=== PATIENT | female | born 1990 | race African-American/Black ===

== ENCOUNTER 2020-01-10 10:13 | Emergency (ER) | payer OTHER, BC, SELFPAY ==
[2020-01-10 10:22] VITALS: BP 120/65; PULSE 88; RESP 16; TEMP 36.8; O2SAT 100
--- NOTE | 2020-01-10 10:39 | ED.DIZZY ---
HPI - Dizziness General Chief Complaint: Dizziness Stated Complaint: 4 months preg - Fall Time Seen by Provider: 01/10/20 10:35 Source: patient Mode of arrival: ambulatory Limitations: no limitations History of Present Illness HPI Narrative: Pt is a 29 y/o female who is 17 weeks , that presents to the ED with c/o feeling dizzy after tripping and falling. She notes that she was in a hurry, turned quickly, and landed on her rt side. About 2 minutes after her fall she started getting dizzy. Pt is still lightheaded in the ED bed. She states that she slightly hit the rt side of her ABD. Pt reports pain to her rt thigh, rt ankle, and lt index finger. She notes that her neck felt stiff after the fall. Pt denies vaginal bleeding, vaginal discharge, or N/V. MD elicited complaint: dizziness Timing: sudden onset (2 minutes after falling) Description: lightheadedness Context: other (fall) Associated symptoms: denies other symptoms Related Data Home Medications Medication Instructions Recorded Confirmed budesonide-formoterol HFA 160 See Rx Instructions .ROUTE .COMPLEX 09/08/19 mcg-4.5 mcg/actuation aerosol inhaler cholecalciferol (vitamin D3) 125 5,000 unit PO DAILY 09/08/19 mcg (5,000 unit) tablet omeprazole 20 mg capsule,delayed See Rx Instructions .ROUTE .COMPLEX 09/08/19 release vits 75-iron 28 mg-folic pkg PO 11/14/19 acid 800 mcg-omega-3 oral combo pack Allergies Allergy/AdvReac Type Severity Reaction Status Date / Time metoclopramide Allergy Unknown HIVES Verified 01/10/20 10:47 Review of Systems Review of Systems: All systems reviewed & are unremarkable except as noted in HPI and below Gastrointestinal: Gastrointestinal: Denies nausea and Denies vomiting Genitourinary: Genitourinary: Denies vaginal discharge and Denies other (vaginal bleeding) Musculoskeletal: Musculoskeletal: Reports stiffness (neck) and Reports other (rt thigh pain, rt ankel pain, lt index finger pain) Neurologic: Reports dizziness PMFSH Past Medical History Medical History Anemia Asthma History of IBS Migraines Supervision of other high risk pregnancies, second trimester Surgical History Surgical History History of ankle surgery History of repair of ACL Social History Social History Smoking status: Former smoker Smoking end date: 11/01/03 Alcohol intake: current Exam Narrative: Exam Narrative: General appearance: Well-developed, well-nourished, morbidly obese Skin: Normal color Head: Normocephalic, nontraumatic Eyes: Clear conjunctiva ENT: Oropharynx normal, ears normal, nose normal Neck: Supple, nontender Chest and respiratory: Airway patent, no respiratory distress, no accessory muscle use Heart: Regular rate/rhythm Abdomen: Soft, nontender, no organomegaly, quiet bowel sounds Vascular: Normal peripheral pulses, normal capillary refill. Musculoskeletal: Normal range of motion, nontender back, mild tenderness right thigh laterally, no bruises or swelling Neurologic: Alert and oriented ?3, RN FORENSIC is normal as tested, no gross motor deficit Course Course Emergency Course: Stable Vital Signs Vital signs: Vital Signs Temperature 36.8 C 01/10/20 10:22 Pulse Rate 88 01/10/20 10:22 Respiratory Rate 16 01/10/20 10:22 Blood Pressure 120/65 01/10/20 10:22 Pulse Oximetry 100 01/10/20 10:22 Temperature 36.8 C 01/10/20 10:22 Pulse Rate 88 01/10/20 10:22 Respiratory Rate 16 01/10/20 10:22 Blood Pressure 120/65 01/10/20 10:22 Pulse Oxim
--- NOTE | 2020-01-10 10:58 | PC.NURSE ---
Pt became dizzy, lightehaded and nauseated while rolling to change bed. Large amount blood passing vaginally. ERP aware.
--- NOTE | 2020-01-10 11:34 | PC.NURSE ---
OB nurse here to monitor baby
[2020-01-10 12:37] VITALS: BP 108/59; PULSE 72; RESP 18; O2SAT 100
== END 2020-01-10 12:38 | disposition home or self-care (01) ==
PROVIDERS: Emergency Provider Emergency Medicine; PCP Emergency Medicine
DX: O9A.212 Injury, poisoning and certain other consequences of external causes complicating pregnancy, second trimester (principal); S39.91XA Unspecified injury of abdomen, initial encounter; Z3A.17 17 weeks gestation of pregnancy; W19.XXXA Unspecified fall, initial encounter
CPT/HCPCS: 99282

== ENCOUNTER 2020-01-24 13:27 | Outpatient (CLI) | payer BC, SELFPAY ==
--- NOTE | ~2020-01-24 | US_ITS ---
EXAMINATION: US OB /maternal detail DATE: 01/24/2020 15:09 INDICATION: Encounter for other unspecified screening, second trimester TECHNIQUE: Real-time ultrasound of the pelvis was performed. COMPARISON: None. FINDINGS: There is a single living fetus in breech presentation. The placenta is posterior and 7 cm from the in ternal cervical os. heart rate is 134 beats per minute (bpm). cardiac activity and movement are noted. The amniotic fluid index is normal. The following anatomy was identified as normal: 4 chamber heart 3 vessel cord cord insertion kidneys urinary bladder stomach spine diaphragm ventricles cisterna magna cerebellum The following biometric data were obtained: Biparietal diameter (BPD): 4.4 cm; head circumference (HC): 16.9 cm; abdominal circumference (AC): 13 .9 cm; femur length (FL): 3.3 cm. These measurements are concordant. Estimated weight is 216 g +/- 47 g, which correlates with the 52nd percentile when 06/14/2020 is used as estimated date of delivery. As single measurements, these parameters are each equal to the following estimated gestational ages w ith ranges of +/- 2 standard deviations: BPD: 19 weeks 3 days +/- 1 weeks 5 days. HC: 19 weeks 4 days +/- 1 weeks 3 days. AC: 19 weeks 3 days +/- 2 weeks 0 days. FL: 20 weeks 3 days +/- 1 weeks 6 days. estimated gestational age based solely on measurements from this exam is 19 weeks 5 days +/- 1 weeks 3 days. IMPRESSION: 1. Single living fetus in breech presentation. 2. Estimated weight is 216 g +/- 47 g, which correlates with the 52nd percentile when 06/14/2020 is used as estimated date of delivery. Reviewed, dictated and finalized at location B. IMPRESSION: 1. Single living fetus in breech presentation. 2. Estimated weight is 216 g +/- 47 g, which correlates with the 52nd per centile when 06/14/2020 is used as estimated date of delivery.
== END 2020-01-24 13:28 | disposition home or self-care (01) ==
PROVIDERS: PCP Emergency Medicine; Visit Provider Obstetrics & Gynecology
DX: Z36.89 Encounter for other specified antenatal screening (principal); Z3A.19 19 weeks gestation of pregnancy
CPT/HCPCS: 76805

== ENCOUNTER 2020-04-02 23:29 | Observation (INO) | payer BC, SELFPAY ==
--- NOTE | ~2020-04-02 | XR_ITS ---
EXAMINATION: XR chest 2V EXAM DATE: 04/03/2020 00:04 INDICATION: Shortness of breath. TECHNIQUE: Frontal and lateral projections of the chest obtained and reviewed. There is no prior gaston dy for comparison. FINDINGS: The lungs are clear. There are no pleural effusions. The cardiomediastinal silhouette is within normal limits. There is no pneumothorax suspected. The bones and soft tissues are unremarkab le. IMPRESSION: Normal chest x-ray exam. Reviewed, dictated and finalized at location G. IMPRESSION: Normal chest x-ray exam.
[2020-04-02 23:35] VITALS: BP 128/81; PULSE 91; RESP 20; TEMP 36.3; O2SAT 100
[2020-04-03] VITALS (8 sets, daily range): BP systolic 108–115; BP diastolic 69–78; PULSE 70–88; RESP 14–16; TEMP 36.3–37.2; O2SAT 98–100; BMI 39.2
--- NOTE | 2020-04-03 00:02 | PC.NURSE ---
Upon arrival to ED, patient denies any SOB. Patient states she just had a brief episode of SOB.
[2020-04-03 00:25] LABS: Basophils Percent Auto 0.2 % (0.2-1.2); Eosinophils Absolute Auto 0.1 K/mm3 (0-0.3); Eosinophils Percent Auto 0.8 % (0-4.4); Hematocrit 32.7 % (37.0-47.0); Hemoglobin 10.4 g/dL (12.0-15.0); Immature Granulocyte Absolute 0.16 K/mm3 (0.00-0.031); Immature Granulocyte Percent A 1.2 % (0-0.5); Lymphocytes Absolute Auto 1.81 K/mm3 (0.9-3.2); Mean Corpuscular HGB Conc 31.8 g/dl (32-36); Mean Corpuscular Hemoglobin 27.4 pg (26-34); Mean Corpuscular Volume 86.3 fl (80-100); Mean Platelet Volume 10.2 fl (7.4-10.4); Neutrophils Absolute Auto 10.8 K/mm3 (1.3-6.7); Neutrophils Percent Auto 77.8 % (45.5-73.1); Platelet Count Result 308 k/mm3 (150-375); Red Blood Count 3.79 M/mm3 (4.2-5.4); Red Cell Distribution Width 13.9 % (11.5-14.5); White Blood Count 13.9 K/mm3 (4.5-10.0)
[2020-04-03 00:28] LABS: Blood Urea Nitrogen 7 mg/dL (7-17); Calcium 8.8 mg/dL (8.4-10.2); Carbon Dioxide 22 mmol/L (22-30); Chloride 105 mmol/L (98-107); Estimated Glomerular Filt Rate > 60; Glucose 93 mg/dL (65-105); Sodium 133 mmol/L (137-145)
--- NOTE | 2020-04-03 00:28 | PC.NURSE ---
PT ARRIVED TO ED AFTER GOING TO OB- OB CALLED TO LET ED KNOW THEY WERE BRINGING PT TO ED TO BE CHECKED FOR SOB. PT ARRIVED TO OB FOR SOB AND ABD PAIN. OB SENT OVER TO ED TO BE CHECKED FOR SOB. ED WAS UNDER ASSUMPTION PT/BABY WAS CHECKED BEFORE SENDING TO ED. PT STATES WILL SOMEONE BE COMING FROM OB TO CHECK BABY HEARTRATE . THIS TECH CALLED OB TO CONFIRM PT WISHES AND WAS INFORMED PT WAS NOT CHECKED AT OB THEY SENT STRAIGHT TO ED FOR SOB AND IF ED WOULD LIKE CONSULT FOR PT AND BABY TO CALL OB FOR CONSULTATION.
--- NOTE | 2020-04-03 02:26 | ED.PREGNANCY ---
HPI - General Chief complaint: Abdominal Pain Stated complaint: sob Time Seen by Provider: 04/03/20 02:07 Source: patient Mode of arrival: ambulatory Limitations: no limitations History of Present Illness HPI Narrative: This patient is a 30 year old female G1PO approximately 29 weeks GA who states she went to Labor and Delivery to be evaluated for abdominal pain. She was sent to ER from Labor and delivery because she told them she had brief episode of shortness of breath that resolved. She is concerned about her abdominal pain. She denies shortness of breath, chest pain, cough or fever. Around 8 pm tonight she developed mid to lower abdominal pain. This pain has been constant. She describes this pain as burning and it is worse with movement. She has no associated urinary symptoms , vaginal discharge or vaginal bleeding. OBGYN is Dr. Moises HERNANDEZ Complaint: abdominal pain Related Data Home Medications Medication Instructions Recorded Confirmed cholecalciferol (vitamin D3) 125 5,000 unit PO DAILY 09/08/19 mcg (5,000 unit) tablet vits 75-iron 28 mg-folic pkg PO 11/14/19 acid 800 mcg-omega-3 oral combo pack Caltrate 600 plus D 1 tablet PO DAILY 03/28/20 03/28/20 Ferralet 90 Dual-Iron Delivery 1 tablet PO ONCE 03/28/20 03/28/20 Allergies Allergy/AdvReac Type Severity Reaction Status Date / Time metoclopramide Allergy Unknown HIVES Verified 04/03/20 02:10 Review of Systems Review of Systems: All systems reviewed & are unremarkable except as noted in HPI and below Constitutional: Constitutional: Denies chills, Denies fever(s) and Denies weakness ENT: Denies dizziness Cardiovascular: Cardiovascular: Denies chest pain, Denies rapid heart rate and Denies radiating jaw, neck or arm pain Respiratory: Respiratory: Denies chest congestion, Denies cough and Denies wheezing Gastrointestinal: Gastrointestinal: Reports abdominal pain PMFSH Social History Social History Smoking status: Never smoker Smoking end date: 11/01/03 Alcohol intake: current Gender identity (if verbalized by the patient): Female Spiritual care concerns: No Exam Narrative: Exam Narrative: GENERAL: Well-appearing, well-nourished, and in no acute distress. HEAD: Normocephalic, atraumatic EYES: PERRLA and EOMI, conjunctiva clear without discharge THROAT:Mucous membranes moist, Oropharynx normal without erythema, exudate, peritonsillar swelling or fluctuance NECK: Supple, without lymphadenopathy or mass RESPIRATORY: No respiratory distress, Airway patent, Respirations non-labored, Clear to auscultation without rales, rhonchi or wheeze HEART: Regular rate and rhythm. No murmur heard. Normal peripheral pulses. ABDOMEN: Soft,gravid, uterine tenderness, normal active bowel sounds. No masses. No rebound or guarding, No organomegaly. EXTREMITIES: No edema, normal strength with full range of motion. SKIN: Warm, dry, normal color without rash NEURO: Alert and oriented x3. CN 2-12 grossly intact. No focal deficits. PSYCH: Normal mood and affect. Course Reevaluation(s) Reevaluation #1: heart tones performed 130 in left abdomen. Patient has not shortness of breath here. Will send to Labor and Delivery Date: 04/03/20 Time: 03:00 Consultations Consultation #1: I Discussed case with Dr. De Leon who agrees patient can be sent to Labor and Delivery for assessment of her abdominal pain. Patient has no shortness of breath and vitals are normal Date: 04/03/20 Time: 03:00 Vital Signs Vital signs: Vital Signs Temperature 97.4 F L 04/02/20 23:35 Pulse Rate 91 04/02/20 23:35 Respiratory Rate 20 04/02/20 23:35 Blood Pressure 128/81 04/02/20 23:35 Pulse Oximetry 100 04/02/20 23:35 Temperature 98.2 F 04/03/20 03:46 Pulse Rate 84 04/03/20 04:30 Respiratory Rate 16 04/03/20 03:20 Blood Pressure 112/75 04/03/20 04:30 Pu
[2020-04-03 02:42] LABS: Add Urine Microscopic? YES; Appearance Urine Clear (Clear); Bacteria Urine Trace /hpf; Bilirubin Urine Negative (Negative); Blood Urine Negative (Negative); Color Urine Yellow (Yellow); Glucose Urine UA Negative (Negative); Ketones Urine Negative (Negative); Leukocyte Esterase Ur Negative LEU/UL (Negative); Mucus Urine Rare /lpf; Nitrate Urine Negative (Negative); Protein Urine 1+ mg/dL (Negative); RBC Urine 0-2 /hpf (0-2); Squamous Epithelial Cell Urine Occasional /hpf (Few); Urobilinogen Urine Negative mg/dL (<2.0); WBC Urine 0-3 /hpf
[2020-04-03 03:40] LABS: Alanine Aminotransferase 42 U/L (4-35); Albumin Level 3.9 g/dL (3.5-5.1); Alkaline Phosphatase 121 U/L (38-126); Aspartate Amino Transferase 34 U/L (14-36); Bilirubin,Total 0.2 mg/dL (0.2-1.3)
--- NOTE | 2020-04-03 03:45 | OBADM ---
This patient, Anai Tony, admitted to the OB room [facility] Post [facility] for observation. Patient/family oriented to hospital policies and general routines including ID bracelet, bed and alarms, visiting hours, pain management, procedures, bathroom and other care routines, personal items, smoking policy, room service/diet, and visiting hours. Patient/Family are encouraged to report perceived risks to care and to ask questions if they do not understand what they are told or what they should do.
[2020-04-03 03:48] LABS: Uric Acid 4.4 mg/dL (2.5-7.5)
[2020-04-03 04:49] LABS: Hepatitis B Surface Antigen Negative (Negative)
[2020-04-03 04:55] LABS: HAV RESULT Negative (Negative); Hepatitis B Core IgM Result Negative (Negative)
[2020-04-03 05:07] LABS: Hepatitis C Virus Antibody Negative (Negative)
--- NOTE | 2020-04-05 13:31 | PM.OBTRLD ---
OB - Triage/Final Diagnosis Evaluation Laboratory results: Laboratory Tests 04/03/20 04/03/20 04/03/20 00:10 00:10 00:10 WBC 13.9 H RBC 3.79 L Hgb 10.4 L Hct 32.7 L MCV 86.3 MCH 27.4 MCHC 31.8 L RDW 13.9 Plt Count 308 MPV 10.2 Immature Gran % (Auto) 1.2 H Neut % (Auto) 77.8 H Lymph % (Auto) 13.0 L Bath % (Auto) 7.0 Eos % (Auto) 0.8 Baso % (Auto) 0.2 Lymph # (Auto) 1.81 Bath # (Auto) 1.0 H Eos # (Auto) 0.1 Baso # (Auto) 0.0 Abs Immat Gran (auto) 0.16 H Absolute Neuts (auto) 10.8 H Absolute Nucleated RBC 0.0 Nucleated RBC % 0.0 Sodium 133 L Potassium 4.0 Chloride 105 Carbon Dioxide 22 BUN 7 Creatinine 0.50 L Estim Creat Clear Calc Not Reportable Estimated GFR > 60 Glucose 93 Uric Acid 4.4 Calcium 8.8 Total Bilirubin Direct Bilirubin AST ALT Alkaline Phosphatase Total Protein Albumin Urine Color Urine Appearance Urine pH Ur Specific [place] Urine Protein Urine Glucose (UA) Urine Ketones Ur Blood (Man) Urine Nitrate Urine Bilirubin Urine Urobilinogen Leukocyte Esterase Rfl Urine RBC Urine WBC Ur Squamous Epith Cells Urine Bacteria Urine Mucus Hepatitis A IgM Ab Hep Bs Antigen Hep B Core IgM Ab Hepatitis C Ab Screen 04/03/20 04/03/20 04/03/20 00:10 02:28 03:21 WBC RBC Hgb Hct MCV MCH MCHC RDW Plt Count MPV Immature Gran % (Auto) Neut % (Auto) Lymph % (Auto) Bath % (Auto) Eos % (Auto) Baso % (Auto) Lymph # (Auto) Bath # (Auto) Eos # (Auto) Baso # (Auto) Abs Immat Gran (auto) Absolute Neuts (auto) Absolute Nucleated RBC Nucleated RBC % Sodium Potassium Chloride Carbon Dioxide BUN Creatinine Estim Creat Clear Calc Estimated GFR Glucose Uric Acid Calcium Total Bilirubin 0.2 Direct Bilirubin 0.0 AST 34 ALT 42 H Alkaline Phosphatase 121 Total Protein 8.0 Albumin 3.9 Urine Color Yellow Urine Appearance Clear Urine pH 6.0 Ur Specific [place] 1.030 Urine Protein 1+ H Urine Glucose (UA) Negative Urine Ketones Negative Ur Blood (Man) Negative Urine Nitrate Negative Urine Bilirubin Negative Urine Urobilinogen Negative Leukocyte Esterase Rfl Negative Urine RBC 0-2 Urine WBC 0-3 Ur Squamous Epith Cells Occasional Urine Bacteria Trace Urine Mucus Rare Hepatitis A IgM Ab Negative Hep Bs Antigen Negative Hep B Core IgM Ab Negative Hepatitis C Ab Screen Negative Final Diagnosis (1) Abdominal pain affecting : Code(s): O26.899 - Other specified related conditions, unspecified trimester; R10.9 - Unspecified abdominal pain Status: Acute
== END 2020-04-03 05:20 | disposition home or self-care (01) ==
LOC: ANHED 04-03 02:07 → ANHOBPP 04-03 03:38 → ANHED 04-03 03:41 → ANHOBPP 04-03 03:41
PROVIDERS: Admitting Provider Obstetrics & Gynecology; Emergency Provider General Practice; PCP Emergency Medicine; Visit Provider Obstetrics & Gynecology
DX: O26.893 Other specified pregnancy related conditions, third trimester (principal); R10.9 Unspecified abdominal pain; Z3A.29 29 weeks gestation of pregnancy
CPT/HCPCS: 36415; 59025; 71046; 80048; 80074; 80076; 81001; 84550; 85025; 96374; 99285; G0378; J0131

== ENCOUNTER 2020-05-14 12:17 | Outpatient (CLI) | payer BC, SELFPAY ==
[2020-05-14 12:32] LABS: Basophils Percent Auto 0.3 % (0.2-1.2); Eosinophils Absolute Auto 0.1 K/mm3 (0-0.3); Eosinophils Percent Auto 0.7 % (0-4.4); Hematocrit 35.9 % (37.0-47.0); Hemoglobin 11.7 g/dL (12.0-15.0); Lymphocytes Absolute Auto 1.61 K/mm3 (0.9-3.2); Lymphocytes Percent Auto 15.8 % (18.3-44.2); Mean Corpuscular HGB Conc 32.6 g/dl (32-36); Mean Corpuscular Hemoglobin 28.6 pg (26-34); Mean Corpuscular Volume 87.8 fl (80-100); Mean Platelet Volume 9.7 fl (7.4-10.4); Monocytes Absolute Auto 0.9 K/mm3 (0.1-0.6); Monocytes Percent Auto 8.9 % (2.6-8.5); Neutrophils Absolute Auto 7.5 K/mm3 (1.3-6.7); Neutrophils Percent Auto 73.3 % (45.5-73.1); Platelet Count Result 280 k/mm3 (150-375); Red Blood Count 4.09 M/mm3 (4.2-5.4); Red Cell Distribution Width 14.4 % (11.5-14.5); White Blood Count 10.2 K/mm3 (4.5-10.0)
[2020-05-14 13:25] LABS: HIV 1/2 Ab P24 Ag Result Negative (Negative)
[2020-05-15 07:41] LABS: Rapid Plasma Reagin Non-Reactive (NonReactive)
== END 2020-05-14 12:18 | disposition home or self-care (01) ==
PROVIDERS: PCP Emergency Medicine; Visit Provider Obstetrics & Gynecology
DX: O09.893 Supervision of other high risk pregnancies, third trimester (principal); Z3A.00 Weeks of gestation of pregnancy not specified
CPT/HCPCS: 36415; 85025; 86592; 86703; G0432

== ENCOUNTER 2020-05-20 11:55 | Outpatient (RCR) | payer BC, SELFPAY ==
[2020-04-15 10:43] VITALS: BP 112/68; PULSE 84
[2020-04-22 11:20] VITALS: BP 118/74; PULSE 96
[2020-04-29 15:21] VITALS: BP 126/72; PULSE 92
[2020-05-13 12:16] VITALS: BP 108/69; PULSE 95
[2020-05-14 12:03] VITALS: BP 113/76; PULSE 89
[2020-05-15 09:46] VITALS: BP 108/65; PULSE 114
--- NOTE | ~2020-05-20 | US_ITS ---
EXAMINATION: US OB limited w BPP DATE: 05/14/2020 11:11 CDT INDICATION: Diabetes. TECHNIQUE: Real-time transabdominal obstetric ultrasound. FINDINGS: No prior studies for comparison. There is a single living fetus in vertex presentation. The placenta is posterior without placenta pr evia. KURT is below normal limits measuring 5.75 (normal range for gestational age is 7.9-24.9 cm). cardiac activity and movement is noted with a heart rate of 134 beats per minute. Biophysical profile: breathin of 2 movement: 2 of 2 tone: 2 of 2 Amniotic flud pocket: 2 of 2 Total score: 8 of 8 IMPRESSION: 1. Single living intrauterine in vertex presentation. 2: Total biophysical profile score of 8/8. 3: Oligohydramnios. Reviewed, dictated and finalized at location B.
--- NOTE | ~2020-05-20 | US_ITS ---
EXAMINATION: 1. US OB limited w BPP 2. US umbilical doppler DATE: 05/20/2020 12:59 INDICATION: Small for gestational age. Chronic hypertension. Oligohydramnios. Third trimester. TECHNIQUE: Real-time pelvic ultrasound was performed. COMPARISON: Ultrasound 05/15/2020 FINDINGS: There is a single living fetus in vertex presentation. The placenta is posterior. heart rate i s 125 beats per minute (bpm). The amniotic fluid index is 11.0 cm, which is normal. Biophysical profile performed by the technologist: breathing (30 sec sustained breathing in 30 minutes): 2 out of 2 movement (3 gross body movements in 30 minutes): 2 out of 2 tone (one episode of yuaqzuo-bbwsmrnss-mdptymh limb movement): 2 out of 2 Amniotic fluid pocket (2 cm): 2 out of 2 Total score: 8 out of 8 Umbilical artery pulsed Doppler demonstrates a peak systolic to end-diastolic velocity ratio (S/D rat io) of 2.8 (5th percentile = 1.98, 95th percentile = 3.29). IMPRESSION: 1. Single living fetus in vertex presentation. 2. Biophysical profile 8 out of 8. 3. Normal umbilical artery Doppler. Reviewed, dictated and finalized at location A. IMPRESSION: 1. Single living fetus in vertex presentation. 2. Biophysical profile 8 out of 8. 3. Normal umbilical artery Doppler.
--- NOTE | ~2020-05-20 | US_ITS ---
EXAMINATION: US OB BPP wo non-stress DATE: 05/06/2020 11:48 INDICATION: Chronic hypertension. Third trimester. TECHNIQUE: Real-time pelvic ultrasound was performed. COMPARISON: ultrasound 01/24/20 FINDINGS: There is a single living fetus in vertex presentation. The placenta is left posterior. heart r ate is 134 beats per minute (bpm). The amniotic fluid index is 11.0 cm, which is normal. Biophysical profile performed by the technologist: breathing (30 sec sustained breathing in 30 minutes): 2 out of 2 movement (3 gross body movements in 30 minutes): 2 out of 2 tone (one episode of zgdejby-wunvvdowz-xbhgheh limb movement): 2 out of 2 Amniotic fluid pocket (2 cm): 2 out of 2 Total score: 8 out of 8 IMPRESSION: 1. Single living fetus in vertex presentation. 2. Biophysical profile 8 out of 8. Reviewed, dictated and finalized at location A.
--- NOTE | ~2020-05-20 | US_ITS ---
EXAMINATION: US OB limited, US umbilical doppler DATE: 05/15/2020 09:21 INDICATION: Hypertension during third trimester . Oligohydramnios. Assess amniotic fluid ind ex. TECHNIQUE: Real-time ultrasound of the pelvis was performed. The interpreting radiologist was not pre sent for the study. COMPARISON: 05/14/2020 FINDINGS: There is a single living fetus in vertex presentation. The placenta is posterior. heart rate i s 133 beats per minute (bpm). The amniotic fluid index is 11.1 cm, which is normal (5th%-95%: 7.7-4.9 cm at 36 weeks estimated gestational age). The umbilical artery demonstrates a peak systolic and bc stolic velocity ratio of 2.9at the fetus, 3.1 in the mid cord and 2.2 near the placenta (5th%-95%: 1. 98-3.29 at 36 weeks). IMPRESSION: 1. Single living fetus in vertex presentation with heart rate of 133 bpm. 2. Normal amniotic fluid index of 11.1 cm. 3. Normal umbilical arterial systolic to diastolic ratios of 2.2-3.1. Reviewed, dictated and finalized at location A. IMPRESSION: 1. Single living fetus in vertex presentation with heart rate of 133 bpm . 2. Normal amniotic fluid index of 11.1 cm. 3. Normal umbilical arterial systolic to diastolic ratios of 2.2-3.1.
[2020-05-20 13:00] VITALS: BP 123/73; PULSE 78
== END 2020-05-27 07:32 | disposition home or self-care (01) ==
LOC: ANHOBOP 11:55
PROVIDERS: PCP Emergency Medicine; Visit Provider Obstetrics & Gynecology
DX: O36.5930 Maternal care for other known or suspected poor fetal growth, third trimester, not applicable or unspecified (principal); O16.3 Unspecified maternal hypertension, third trimester; Z3A.31 31 weeks gestation of pregnancy; Z3A.32 32 weeks gestation of pregnancy; Z3A.33 33 weeks gestation of pregnancy; Z3A.34 34 weeks gestation of pregnancy; Z3A.35 35 weeks gestation of pregnancy; Z3A.36 36 weeks gestation of pregnancy
CPT/HCPCS: 59025; 76815; 76819; 76820

== ENCOUNTER 2020-05-22 18:54 | Inpatient (IN) | payer BC, SELFPAY ==
[2020-05-22] VITALS (13 sets, daily range): BP systolic 109–122; BP diastolic 66–87; PULSE 77–103; TEMP 36.8; BMI 42.5
--- NOTE | 2020-05-22 19:55 | LDADM ---
This patient, Anai Tony, was admitted to Labor/Delivery/Recovery 103 on 05/22/20 at 18:54. Plans for labor, pain management and were discussed with patient. Patient/family oriented to hospital policies and general routines including ID bracelet, bed and alarms, visiting hours, pain management, procedures, bathroom and other care routines, personal items, smoking policy, room service/diet and guest tray routines, security routines, and visiting hours. Patient/Family are encouraged to report perceived risks to care and to ask questions if they do not understand what they are told or what they should do. See OBIX for further documentation.
[2020-05-22 20:45] LABS: Basophils Percent Auto 0.2 % (0.2-1.2); Eosinophils Absolute Auto 0.1 K/mm3 (0-0.3); Eosinophils Percent Auto 0.7 % (0-4.4); Hematocrit 32.9 % (37.0-47.0); Hemoglobin 10.7 g/dL (12.0-15.0); Immature Granulocyte Absolute 0.09 K/mm3 (0.00-0.031); Immature Granulocyte Percent A 0.8 % (0-0.5); Lymphocytes Absolute Auto 1.59 K/mm3 (0.9-3.2); Lymphocytes Percent Auto 14.1 % (18.3-44.2); Mean Corpuscular HGB Conc 32.5 g/dl (32-36); Mean Corpuscular Hemoglobin 28.4 pg (26-34); Mean Corpuscular Volume 87.3 fl (80-100); Mean Platelet Volume 10.2 fl (7.4-10.4); Monocytes Absolute Auto 0.9 K/mm3 (0.1-0.6); Monocytes Percent Auto 8.3 % (2.6-8.5); Neutrophils Absolute Auto 8.6 K/mm3 (1.3-6.7); Neutrophils Percent Auto 75.9 % (45.5-73.1); Platelet Count Result 272 k/mm3 (150-375); Red Blood Count 3.77 M/mm3 (4.2-5.4); Red Cell Distribution Width 13.9 % (11.5-14.5); White Blood Count 11.3 K/mm3 (4.5-10.0)
[2020-05-22] MEDS: DINOPROSTONE 10 MG VAG INSERT VAGINAL (20:45)
[2020-05-22] MEDS: LACTATED RINGERS 1,000 ML 125 ML IV CONT (20:45)
[2020-05-22] MEDS: AMPICILLIN 2 GM/NS 100 ML 2 GM/100 ML BAG IVPB (20:45)
--- NOTE | 2020-05-22 20:49 | WPDANESEPP ---
Anes - Eval Pre Procedure Procedure: labor epidural Date/Time: 05/22/20 20:49 Surgeon: Moises Preop Diagnosis: Abd pain with contractions Pre Op Diagnosis: Induction Patient Data Age: 30 Gender: F Height: 5 ft 5 in Weight: 116 kg Last Vital Signs Pulse 102 H 05/22/20 19:46 BP 114/87 05/22/20 19:46 Allergies Allergy/AdvReac Type Severity Reaction Status Date / Time metoclopramide Allergy Unknown HIVES Verified 05/20/20 13:22 Home Medications Medication Instructions Recorded Confirmed Type cholecalciferol (vitamin D3) 125 5,000 unit PO DAILY 09/08/19 05/22/20 History mcg (5,000 unit) tablet vits 75-iron 28 mg-folic pkg PO 11/14/19 History acid 800 mcg-omega-3 oral combo pack budesonide-formoterol HFA 160 See Rx Instructions .ROUTE 02/05/20 05/13/20 Rx mcg-4.5 mcg/actuation aerosol .COMPLEX #10.2 gm inhaler Caltrate 600 plus D 1 tablet PO DAILY 03/28/20 05/13/20 History albuterol sulfate 2 puff INHALATION QID PRN 05/13/20 05/22/20 History aspirin [Aspirin Childrens] 81 mg PO DAILY 05/22/20 05/22/20 History Laboratory Tests 05/22/20 05/22/20 05/22/20 19:47 19:47 19:47 WBC 11.3 K/mm3 H K/mm3 (4.5-10.0) RBC 3.77 M/mm3 L M/mm3 (4.2-5.4) Hgb 10.7 g/dL L g/dL (12.0-15.0) Hct 32.9 % L % (37.0-47.0) MCV 87.3 fl fl (80-100) MCH 28.4 pg pg (26-34) MCHC 32.5 g/dl g/dl (32-36) RDW 13.9 % % (11.5-14.5) Plt Count 272 k/mm3 k/mm3 (150-375) MPV 10.2 fl fl (7.4-10.4) Immature Gran % (Auto) 0.8 % H % (0-0.5) Neut % (Auto) 75.9 % H % (45.5-73.1) Lymph % (Auto) 14.1 % L % (18.3-44.2) [place] % (Auto) 8.3 % % (2.6-8.5) Eos % (Auto) 0.7 % % (0-4.4) Baso % (Auto) 0.2 % % (0.2-1.2) Lymph # (Auto) 1.59 K/mm3 K/mm3 (0.9-3.2) [place] # (Auto) 0.9 K/mm3 H K/mm3 (0.1-0.6) Eos # (Auto) 0.1 K/mm3 K/mm3 (0-0.3) Baso # (Auto) 0.0 K/mm3 K/mm3 (0.0-0.1) Abs Immat Gran (auto) 0.09 K/mm3 H K/mm3 (0.00-0.031) Absolute Neuts (auto) 8.6 K/mm3 H K/mm3 (1.3-6.7) Absolute Nucleated RBC 0.0 K/mm3 K/mm3 (0.0-0.012) Nucleated RBC % 0.0 % % (0.0-0.2) RPR Pending HIV 1&2 Ab/P24 Ag 4thGn Pending Patient hx anesthesia problems: none Family hx anesthesia problems: none PMFSH Past Medical History Medical History Anemia Asthma History of IBS Migraines Supervision of other high risk pregnancies, second trimester Supervision of other high risk pregnancies, third trimester Surgical History Surgical History History of ankle surgery History of repair of ACL Family History Family History Father Diabetes mellitus Cerebrovascular accident Mother Family history of multiple sclerosis Crohn's disease Grandparent Hypertension Social History Social History Smoking status: Never smoker Smoking end date: 11/01/03 Alcohol intake: current Substance use: never Gender identity (if verbalized by the patient): Female Spiritual care concerns: No Exam Day of Procedure 05/22/20 20:49 Patient weight: morbidly obese Neurological: alert and oriented
[2020-05-23] VITALS (47 sets, daily range): BP systolic 99–136; BP diastolic 47–80; PULSE 69–124; TEMP 36.2–36.9; O2SAT 99–100
[2020-05-23] LABS: HIV 1/2 Ab P24 Ag Result Negative (Negative)
--- NOTE | 2020-05-23 00:18 | PM.IMHP ---
H&P: HPI History of Present Illness Chief complaint: Induction Narrative: Anai Tony is a 30 year old female G1PO at 37 weeks by LMP 09/06/19 with an EDC 06/12 consistent with a first trimester ultrasound. PNC significant for chronic hypertension based on two elevated blood pressures prior to 20 weeks. She has not required any antihypertensive medication. PNC also significant for IUGR since second trimester. The evaluation showed + CMV, no other abnormalities seen on ultrasound. She has been getting serial ultrasound and dopplers. The EFW has went from 10% to 6 %. Her last ultrasound showed 4%- normal dopplers. She was recommended for induction for worsening growth restriction at term. She also has a history of being born with a club foot, no abnormalities were seen on Level 2. She has a history of mild asthma- has not needed any steroids. She has an inhaler as needed. Discussed risk benefits of induction versus continuing expectant management and she agrees with induction. GBS neg. labs reviewed. Review of Systems Review of Systems: All systems reviewed & are unremarkable except as noted in HPI and below Constitutional: Constitutional: Reports no additional constitutional complaints and Denies headache(s) Eyes: Eyes: Denies spots in vision ENT: Reports system reviewed and no additional complaints, except as documented and Denies headache(s) Cardiovascular: Cardiovascular: Denies chest pain and Denies dyspnea Respiratory: Respiratory: Denies dyspnea Gastrointestinal: Gastrointestinal: Reports no additional gastrointestinal complaints Genitourinary: Genitourinary: Reports amenorrhea Musculoskeletal: Musculoskeletal: Reports no additional musculoskeletal complaints Integumentary/Breasts: Skin/Breast: Denies breast mass and Denies rash Neurologic: Denies headache(s) Psychiatric: Psychiatric: Reports no additional psychiatric complaints [facility] Past Medical History Medical History Anemia Asthma History of IBS Migraines Supervision of other high risk pregnancies, second trimester Supervision of other high risk pregnancies, third trimester Surgical History Surgical History History of ankle surgery History of repair of ACL Family History Family History Father Diabetes mellitus Cerebrovascular accident Mother Family history of multiple sclerosis Crohn's disease Grandparent Hypertension Social History Social History Smoking status: Never smoker Smoking end date: 11/01/03 Alcohol intake: current Substance use: never Gender identity (if verbalized by the patient): Female Spiritual care concerns: No Meds Home Medications and Allergies Home Medications Medication Instructions Recorded Confirmed Type cholecalciferol (vitamin D3) 125 5,000 unit PO DAILY 09/08/19 05/22/20 History mcg (5,000 unit) tablet vits 75-iron 28 mg-folic pkg PO 11/14/19 History acid 800 mcg-omega-3 oral combo pack budesonide-formoterol HFA 160 See Rx Instructions .ROUTE 02/05/20 05/13/20 Rx mcg-4.5 mcg/actuation aerosol .COMPLEX #10.2 gm inhaler Caltrate 600 plus D 1 tablet PO DAILY 03/28/20 05/13/20 History albuterol sulfate 2 puff INHALATION QID PRN 05/13/20 05/22/20 History aspirin [Aspirin Childrens] 81 mg PO DAILY 05/22/20 05/22/20 History Allergies Allergy/AdvReac Type Severity Reaction Status Date / Time metoclopramide Allergy Unknown HIVES Verified 05/20/20 13:22 Vital Signs Vital Signs - 24 hr 05/22/20 19:17 05/22/20 19:31 05/22/20 19:46 Pulse Rate 103 H 99 102 H Blood Pressure 122/79 120/81 114/87 05/22/20 20:52 05/22/20 21:01 05/22/20 21:16 Pulse Rate 88 87 81 Blood Pressure 113/66 114/70 115/72 05/22/20 21:31 05/22/20 21:46
[2020-05-23] MEDS: AMPICILLIN 1 GM/NS 50 ML 1 GM/50 ML BAG IVPB (02:26)
[2020-05-23 07:34] LABS: Rapid Plasma Reagin Non-Reactive (NonReactive)
--- NOTE | 2020-05-23 07:48 | PC.NURSE ---
Dr De Leon here and checked pt ...sve 1cm and thick...u/s shows vertex...will do cytotec
[2020-05-23] MEDS: miSOPROStol 25 MCG TABLET VAGINAL ×2 (09:55→14:20)
--- NOTE | 2020-05-23 18:17 | P.PNOB_ITS ---
OB - PN: Subj Subjective Date/time seen: 05/23/20 0730 FHT 120, Cat 1, occasional ctx, cervix ft/th. Will start Cytotec 25mcg q 4 hour. OB - PN: Obj Data Labs CBC & Chem 7: 05/22/20 19:47 Labs: Laboratory Results - last 24 hr 05/22/20 05/22/20 05/22/20 19:47 19:47 19:47 WBC 11.3 H RBC 3.77 L Hgb 10.7 L Hct 32.9 L MCV 87.3 MCH 28.4 MCHC 32.5 RDW 13.9 Plt Count 272 MPV 10.2 Immature Gran % (Auto) 0.8 H Neut % (Auto) 75.9 H Lymph % (Auto) 14.1 L [place] % (Auto) 8.3 Eos % (Auto) 0.7 Baso % (Auto) 0.2 Lymph # (Auto) 1.59 [place] # (Auto) 0.9 H Eos # (Auto) 0.1 Baso # (Auto) 0.0 Abs Immat Gran (auto) 0.09 H Absolute Neuts (auto) 8.6 H Absolute Nucleated RBC 0.0 Nucleated RBC % 0.0 RPR Non-reactive HIV 1&2 Ab/P24 Ag 4thGn Negative Blood Type Antibody Screen 05/22/20 19:47 WBC RBC Hgb Hct MCV MCH MCHC RDW Plt Count MPV Immature Gran % (Auto) Neut % (Auto) Lymph % (Auto) [place] % (Auto) Eos % (Auto) Baso % (Auto) Lymph # (Auto) [place] # (Auto) Eos # (Auto) Baso # (Auto) Abs Immat Gran (auto) Absolute Neuts (auto) Absolute Nucleated RBC Nucleated RBC % RPR HIV 1&2 Ab/P24 Ag 4thGn Blood Type O Positive Antibody Screen Negative OB - PN A/P Time Spent With Patient Time: Total time spent is greater than 50% in coordination of care (as documented) at patient's floor/unit and/or counseling patient:
--- NOTE | 2020-05-23 18:19 | P.PNOB_ITS ---
OB - PN: Subj Subjective Date/time seen: 05/23/20 18:19 FHT 135, Cat 1, ctx q 2-4, cervix 1-2/25%/-3. Will give pain meds as requested and will start Pitocin. OB - PN: Obj Data Labs CBC & Chem 7: 05/22/20 19:47 Labs: Laboratory Results - last 24 hr 05/22/20 05/22/20 05/22/20 19:47 19:47 19:47 WBC 11.3 H RBC 3.77 L Hgb 10.7 L Hct 32.9 L MCV 87.3 MCH 28.4 MCHC 32.5 RDW 13.9 Plt Count 272 MPV 10.2 Immature Gran % (Auto) 0.8 H Neut % (Auto) 75.9 H Lymph % (Auto) 14.1 L [place] % (Auto) 8.3 Eos % (Auto) 0.7 Baso % (Auto) 0.2 Lymph # (Auto) 1.59 [place] # (Auto) 0.9 H Eos # (Auto) 0.1 Baso # (Auto) 0.0 Abs Immat Gran (auto) 0.09 H Absolute Neuts (auto) 8.6 H Absolute Nucleated RBC 0.0 Nucleated RBC % 0.0 RPR Non-reactive HIV 1&2 Ab/P24 Ag 4thGn Negative Blood Type Antibody Screen 05/22/20 19:47 WBC RBC Hgb Hct MCV MCH MCHC RDW Plt Count MPV Immature Gran % (Auto) Neut % (Auto) Lymph % (Auto) [place] % (Auto) Eos % (Auto) Baso % (Auto) Lymph # (Auto) [place] # (Auto) Eos # (Auto) Baso # (Auto) Abs Immat Gran (auto) Absolute Neuts (auto) Absolute Nucleated RBC Nucleated RBC % RPR HIV 1&2 Ab/P24 Ag 4thGn Blood Type O Positive Antibody Screen Negative OB - PN A/P Time Spent With Patient Time: Total time spent is greater than 50% in coordination of care (as documented) at patient's floor/unit and/or counseling patient:
[2020-05-23] MEDS: LACTATED RINGERS 1,000 ML 125 ML IV CONT ×2 (18:39→23:11)
[2020-05-23] MEDS: OXYTOCIN 30 UNITS/NS 500 ML 30 UNITS/500 ML BAG 6 UNITS IV CONT (21:34)
[2020-05-24] VITALS (222 sets, daily range): BP systolic 79–147; BP diastolic 34–113; PULSE 43–200; RESP 16; TEMP 36–37.7; O2SAT 74–100
[2020-05-24] MEDS: diphenhydrAMINE HCl INJ 50 MG/ML VIAL 12.5 MG IV PUSH (04:37)
[2020-05-24] MEDS: LACTATED RINGERS 1,000 ML 125 ML IV CONT (04:48)
--- NOTE | 2020-05-24 07:12 | PM.OBPNVD ---
OB - PN: Subj Subjective Date/time seen: 05/24/20 07:12 FHT 135, Cat 1, 2/70/-2, AROM clear, IUPC placed, will monitor contractions and if inadequate then will restart Pitocin. Pitocin was decreased approximately 545 due to Cat 2 tracing. OB - PN: Obj Data Labs CBC & Chem 7: 05/22/20 19:47 Labs: Laboratory Results - last 24 hr 05/22/20 19:47 RPR Non-reactive OB - PN A/P Time Spent With Patient Time: Total time spent is greater than 50% in coordination of care (as documented) at patient's floor/unit and/or counseling patient:
--- NOTE | 2020-05-24 15:44 | PM.OBPRVD ---
OB - Delivery Note Procedure Delivery date: 05/24/20 Procedure: Spontaneous vaginal delivery events: Labor Induction (Intrauterine growth restriction) Intrapartal events: None Induction method: AROM and per misoprostol protocol Delivery augmentation: rupture of membranes and pitocin Delivery monitor: external FHT and internal uterine Route of delivery: Laceration description: Vaginal - 1st Degree Delivery repair: vicryl (3.0 vicryl) Specimen: Yes (placenta and cord) Estimated blood loss (mL): 200 Anesthesia type: Epidural Disposition: floor Narrative: Patient admitted on 05/22 for [facility] for progressing intrauterine growth restiction. She had cervidil initially and on 05/23 am cervix ext os /. She was started on Cytotec and received two doses and cervix was 1-2/50/-3. She was started on Pitocin. She did have pitocin turned off once due to late decreased variability. Variability improved with oxygen. After an hour she had AROM clear cervix was 2/70/-2. IUPC placed due to difficulty measuring contractions. She progressed to 3-4cm. She then had pressure and was checked and was complete +2. She pushed twice and delivered a female . was vigorously crying and placed on maternal abdomen. Delayed cord clamping. Cord gases and cord blood obtained. Outpatient Therapist available at delivery. Placenta delivered spontaneously their were trailing membranes in the lower uterine segment which was delivered with gentle traction with ring forceps. Uterine tone good. EBL 200c. She sustained a small vaginal tear at introitus repaired with interrupted figure of eight stitches of O vicryl. Patient tolerated procedure well. [facility] Date of : 05/24/20 Time of : 15:18 Weeks of gestation at delivery: 37 gender: Female Weight (pounds): 5 Weight (ounces): 1 presentation: vertex position: Left Occiput Anterior Placenta delivery description: Spontaneous (trailing membranes in lower uterine segment removed with gentle traction and ring forceps) score one minute: 8 score five minutes: 9
[2020-05-24] MEDS: OXYTOCIN 30 UNITS/NS 500 ML 30 UNITS/500 ML BAG 125 UNITS IV CONT (16:10)
[2020-05-24] MEDS: WITCH HAZEL 40 PADS 1 PAD TOPICAL (16:41)
[2020-05-24] MEDS: BENZOCAINE 20% AER SPR (*SP) 56 GM CAN 1 SPRAY TOPICAL (16:41)
[2020-05-24] MEDS: IBUPROFEN 600 MG TABLET PO (19:25)
[2020-05-24] MEDS: DOCUSATE SODIUM 100 MG CAPSULE PO (19:25)
[2020-05-25] MEDS: ACETAMINOPHEN 325 MG TABLET 650 MG PO (00:30)
[2020-05-25 05:11] LABS: Hematocrit 30.8 % (37.0-47.0); Hemoglobin 9.9 g/dL (12.0-15.0)
[2020-05-25] MEDS: IBUPROFEN 600 MG TABLET PO ×2 (05:21→16:29)
[2020-05-25 05:30] VITALS: BP 124/72; PULSE 72; RESP 18; TEMP 36.8
[2020-05-25 09:20] VITALS: BP 100/63; PULSE 69; RESP 18; TEMP 36.4
[2020-05-25] MEDS: POLYSACCHARIDE IRON COMPLEX 150 MG CAPSULE PO ×2 (09:51→16:29)
[2020-05-25] MEDS: MULTIVIT/MIN/PREN/FOL AC/IRON TABLET 1 TAB PO (09:51)
[2020-05-25] MEDS: ASPIRIN 81 MG CHEWABLE TABLET PO (09:51)
[2020-05-25] MEDS: CHOLECALCIFEROL 1,000 UNIT TABLET 5000 UNITS PO (09:51)
[2020-05-25] MEDS: DOCUSATE SODIUM 100 MG CAPSULE PO ×2 (09:52→16:29)
--- NOTE | 2020-05-25 10:48 | P.PNOB_ITS ---
OB - PN: Subj Subjective Date/time seen: 05/25/20 10:48 Patient comments: pain well controlled, tolerating diet and other (Decreasing lochia.) baby status: doing well and nursing well [place] feeding status: exclusively breast feeding OB - PN: Obj Data Labs CBC & Chem 7: 05/25/20 03:47 Labs: Laboratory Results - last 24 hr 05/25/20 03:47 Hgb 9.9 L Hct 30.8 L OB - PN A/P Plan day: 1 Plan: routine care Comments: Patient doing well. Routine care. Time Spent With Patient Time: Total time spent is greater than 50% in coordination of care (as documented) at patient's floor/unit and/or counseling patient: Exam Psych: Affect: normal affect Other: Abd: fundus firm below umbilicus, nontender Perineum: healing Ext: nontender
--- NOTE | 2020-05-25 14:23 | WPDANLDPN2 ---
Anes-Prog Note L&D Date/Time: 05/25/20 14:23 Comfortable throughout: labor and delivery Neuraxial method: epidural Epidural/Spinal procedure site: clean & non-tender Neuro status: Neuro function grossly intact. Cardiovascular status: normal Respiratory status: normal Airway patency: baseline Mental status: baseline Post-Op hydration status: normal Vital Signs: Last Vital Signs Temp 36.4 C 05/25/20 09:20 Pulse 69 05/25/20 09:20 Resp 18 05/25/20 09:20 BP 100/63 05/25/20 09:20 Pulse Ox 100 05/24/20 14:47 Pain score (VAS): 0/10. Patient resting in bed at time of assessment, appears comfortable. I/O: Intake & Output 05/24/20 05/25/20 05/25/20 23:59 07:59 15:59 Intake Total 240 Output Total 80 Balance -80 240 Post-procedural complaints: none Patient feedback: Patient satisfied with anesthetic care.
[2020-05-25 19:15] VITALS: BP 110/69; PULSE 78; RESP 18; TEMP 36.9; O2SAT 100
[2020-05-25] MEDS: TETANUS,DIPHTHERIA,AC PERTUSSIS ADULT (0.5 ML) BOOSTRIX IM (19:16)
[2020-05-26] MEDS: IBUPROFEN 600 MG TABLET PO ×2 (00:12→08:22)
[2020-05-26 08:20] VITALS: BP 116/68; PULSE 77; RESP 16; TEMP 36.4
--- NOTE | 2020-05-26 08:20 | PC.NURSE ---
Patient instructed to view the discharge video Mother & Baby Care, The First Two Weeks online. Patient was given the opportunity and encouraged to ask questions. Patient verbalized understanding of information shared and has been given the mother/baby guide for home reference.
[2020-05-26] MEDS: MULTIVIT/MIN/PREN/FOL AC/IRON TABLET 1 TAB PO (08:22)
[2020-05-26] MEDS: DOCUSATE SODIUM 100 MG CAPSULE PO (08:22)
[2020-05-26] MEDS: POLYSACCHARIDE IRON COMPLEX 150 MG CAPSULE PO (08:23)
--- NOTE | 2020-05-26 09:18 | P.PNOB_ITS ---
OB - PN: Subj Subjective Date/time seen: 05/26/20 09:18 Patient comments: no complaints, pain well controlled, tolerating diet and flatus present [place] baby status: doing well and nursing well feeding status: exclusively breast feeding OB - PN: Obj Data Labs CBC & Chem 7: 05/25/20 03:47 OB - PN A/P Plan Plan: follow up 6 weeks and other (f/u in 1 week for BP checkup) Comments: BF instructed perineal care instructed. Time Spent With Patient Time: Total time spent is greater than 50% in coordination of care (as document ed) at patient's floor/unit and/or counseling patient: Time with patient: less than 15 minutes Review of Systems Constitutional: Constitutional: Reports no additional constitutional complaints Cardiovascular: Cardiovascular: Reports no additional cardiovascular complai nts Respiratory: Respiratory: Reports no additional respiratory complaints Gastrointestinal: Gastrointestinal: Reports no additional gastrointestinal complaints Genitourinary: Genitourinary: Reports no additional female genitourinary complaints Exam Const: General: comfortable, no acute distress, alert and awake Orientation/consciousness: patient oriented x3 Resp: Effort & Inspection: normal respiratory effort Auscultation: clear to auscultation bilaterally Cardio: Rate: regular rate GI: Auscultation: normal bowel sounds Other: Fundus firm below umbilicus Psych: Appearance: grossly normal Mental Status: mental status grossly normal Affect: normal affect Attitude: cooperative Judgement: Good judgement present (Psych)
--- NOTE | 2020-05-26 09:20 | PM.OBDSVD ---
DS: Admitting Diagnosis Admitting Diagnosis Admitting Diagnosis: Maternal care for other known or suspected poor growth, third trimester, not applicable or unspecified OB - DS: Summary OB Procedures : NST OB Procedures Intrapartum: Spontaneous Vag Delivery OB Procedures: : None Time Spent with Patient Time attestation: Total time spent providing and/or coordinating discharge services: Exam Const: General: comfortable, no acute distress, alert and awake Orientation/consciousness: patient oriented x3 Resp: Effort & Inspection: normal respiratory effort Auscultation: clear to auscultation bilaterally Cardio: Rate: regular rate GI: GI Palp: Yes Soft to palpation and Yes Firmness to palpation present (GI) Auscultation: normal bowel sounds Other: Fundus firm below umbilicus Psych: Appearance: grossly normal Mental Status: mental status grossly normal Affect: normal affect Attitude: cooperative DS: Data Data Completed and Pending Pending studies at discharge: Pending at discharge 05/24/20 16:44 Surgical [PTH] Routine Discharge Plan Discharge Attending physician on discharge: Tracey Joshua Discharging Clinician: Tracey Joshua Patient Disposition: Home, Self-Care Activity: as tolerated and pelvic rest Diet: regular Patient Instructions: Antibiotic Form Stand Alone Forms: General Discharge Information Follow-up/Referrals: Carlos De Leon MD [Physician] - Discharge Medications: New polysaccharide iron complex 150 mg iron Capsule 150 mg PO BIDWM Qty: 60 RF: 0 docusate sodium 100 mg Capsule 100 mg PO BID PRN (Reason: Constipation) Qty: 60 RF: 0 ibuprofen 600 mg Tablet 600 mg PO Q6H PRN (Reason: Cramping) Qty: 60 RF: 0 Continued Caltrate 600 plus D 600 mg (1,500 mg)-800 unit Tablet,Chewable 1 tablet PO DAILY RF: 0 cholecalciferol (vitamin D3) 5,000 unit tablet 5,000 unit PO DAILY RF: 0 One A Day Women's DHA 28 mg iron- 800 mcg combo pack 1 pkg PO DAILY RF: 0 albuterol sulfate 90 mcg/actuation Hfa Aerosol Inhaler 2 puff INHALATION QID PRN (Reason: Wheezing) RF: 0 Symbicort 160-4.5 mcg/actuation HFA aerosol inhaler See Rx Instructions .ROUTE .COMPLEX Qty: 10.2 RF: 1 Discontinued aspirin [Aspirin Childrens] 81 mg Tablet,Chewable 81 mg PO DAILY RF: 0 Date of admission: 05/22/20 18:54 Primary Care Provider: Larry Waller Admitting Provider: Carlos De Leon Attending physician on admission: Carlos De Leon
[2020-05-29 09:31] VITALS: BP 134/82; PULSE 96; RESP 20; TEMP 37.1; O2SAT 100
== END 2020-05-26 12:42 | disposition home or self-care (01) | DRG 806 ==
LOC: ANHOB2 05-26 10:25 → ANHLDR 05-29 07:24 → ANHOB2 05-29 07:24
PROVIDERS: Admitting Provider Obstetrics & Gynecology; PCP Emergency Medicine; Visit Provider Obstetrics & Gynecology
DX: O36.5930 Maternal care for other known or suspected poor fetal growth, third trimester, not applicable or unspecified (principal); O10.92 Unspecified pre-existing hypertension complicating childbirth; Z37.0 Single live birth; O70.0 First degree perineal laceration during delivery; Z3A.37 37 weeks gestation of pregnancy; O99.214 Obesity complicating childbirth; E66.01 Morbid (severe) obesity due to excess calories
CPT/HCPCS: 36415; 85014; 85018; 85025; 86592; 86703; 86850; 86900; 86901; 88307; 90715; 94640; A9270; G0432; J0290; J1200; J2590; J2795; J3010; J7120

== ENCOUNTER 2020-08-19 13:30 | Outpatient (CLI) | payer BC, SELFPAY ==
--- NOTE | ~2020-08-19 | XR_ITS ---
EXAMINATION: XR ankle RT min 3V DATE: 08/19/2020 13:48 INDICATION: Right ankle pain. TECHNIQUE: 4 views of right ankle were obtained. COMPARISON: Right foot radiographs 06/15/2018 FINDINGS: Pes planus is noted. There are arthrodesis procedures involving calcaneus, talus, navicular , and cuboid with 3 paulina and 3 lag screws. There is height loss of the midfoot and hindfoot with r ocker-bottom foot. There is chronic flattening of the talar dome, consistent with osteonecrosis. Ther e is severe ankle joint osteoarthritis. A staple and a wire fragment are noted in proximal first meta tarsal. No acute fracture. IMPRESSION: 1. Severe ankle joint osteoarthritis. 2. Deformity of the hindfoot and midfoot with rocker-bottom deformity and changes of arthrodesis proc edures. Reviewed, dictated and finalized at location A. IMPRESSION: 1. Severe ankle joint osteoarthritis. 2. Deformity of the hindfoot and midfoot with rocker-bottom deformity and henderson es of arthrodesis procedures.
--- NOTE | ~2020-08-19 | XR_ITS ---
XR knee LT 3V 08/19/2020 13:48 INDICATION: Left knee pain PROCEDURE: 3 views left knee COMPARISON: 11/08/2017 FINDINGS: Fracture, dislocation or subluxation is not identified. No significant joint effusion. The soft tissues appear within normal limits. No foreign bodies are identified. IMPRESSION: 1: NO ACUTE BONE OR JOINT ABNORMALITY IDENTIFIED. Reviewed, dictated and finalized at location B.
== END 2020-08-19 13:31 | disposition home or self-care (01) ==
LOC: ANHIMG 13:35
PROVIDERS: PCP Internal Medicine; Visit Provider Clinical Nurse Specialist
DX: M19.071 Primary osteoarthritis, right ankle and foot (principal); M25.562 Pain in left knee
CPT/HCPCS: 73562; 73610

== ENCOUNTER 2021-02-12 12:36 | Outpatient (CLI) | payer BC, SELFPAY ==
--- NOTE | ~2021-02-12 | US_ITS ---
EXAMINATION: US soft tissue chest DATE: 02/12/2021 13:08 INDICATION: Left chest and shoulder pain and bruising. TECHNIQUE: Multiple grayscale and Doppler ultrasound images of the left chest and shoulder region wer e obtained. COMPARISON: None FINDINGS: There is no abnormal mass or lymphadenopathy in the patient's area of concern in the left u pper chest and shoulder region. IMPRESSION: 1. No abnormality in the patient's area of concern in the left upper chest and shoulder region. Reviewed, dictated and finalized at location A.
== END 2021-02-12 12:37 | disposition home or self-care (01) ==
PROVIDERS: PCP Internal Medicine; Visit Provider Clinical Nurse Specialist
DX: S20.219A Contusion of unspecified front wall of thorax, initial encounter (principal)
CPT/HCPCS: 76604

== ENCOUNTER 2021-06-13 13:08 | Outpatient (CLI) | payer OTHER, SELFPAY ==
--- NOTE | ~2021-06-13 | XR_ITS ---
EXAMINATION: XR knee LT min 4V DATE: 06/13/2021 13:46 INDICATION: Left knee pain TECHNIQUE: Four views of the left knee were obtained. COMPARISON: 08/19/2020 FINDINGS: Alignment is normal. No fracture or osteochondral lesion. Joint spaces are normal with no e rosions. No joint effusion/synovitis. Soft tissues are unremarkable. IMPRESSION: 1. No acute osseous abnormality. Reviewed, dictated and finalized at location B.
== END 2021-06-13 13:09 | disposition home or self-care (01) ==
LOC: ANHIMG 13:12
PROVIDERS: PCP Internal Medicine; Visit Provider Clinical Nurse Specialist
DX: M25.562 Pain in left knee (principal)
CPT/HCPCS: 73564

== ENCOUNTER → 2021-08-19 05:57 | Outpatient (CLI) | payer OTHER, SELFPAY ==
[2021-08-20 19:26] LABS: SARS-CoV-2 RNA PCR Negative
== END ==
PROVIDERS: PCP Internal Medicine; Visit Provider Clinical Nurse Specialist
DX: R68.89 Other general symptoms and signs (principal); Z20.822 Contact with and (suspected) exposure to COVID-19
CPT/HCPCS: C9803; U0003; U0005

== ENCOUNTER 2021-09-19 11:34 | Outpatient (CLI) | payer OTHER, SELFPAY ==
--- NOTE | ~2021-09-19 | XR_ITS ---
XR ankle LT min 3V DATE: 09/19/2021 12:05 INDICATION: Left ankle and foot pain. No injury. TECHNIQUE: 4 views COMPARISON: None FINDINGS: No fracture or dislocation of the ankle or disruption of ankle mortise. No periosteal react ion or bone destruction. IMPRESSION: No significant bony abnormality Reviewed, dictated and finalized at location A. PUNCHER
--- NOTE | ~2021-09-19 | XR_ITS ---
XR foot LT min 3V DATE: 09/19/2021 12:06 INDICATION: Left foot pain. No injury. TECHNIQUE: 4 views COMPARISON: None FINDINGS: There is prominent hallux valgus and bunion deformity. No fracture or dislocation, perioste al reaction or bone destruction. IMPRESSION: Hallux valgus and bunion deformity Reviewed, dictated and finalized at location A. TY SHERIFF GENERALIST/BAILIFF
== END 2021-09-19 11:35 | disposition home or self-care (01) ==
LOC: ANHIMG 11:40
PROVIDERS: PCP Internal Medicine; Visit Provider Nurse Practitioner
DX: M79.89 Other specified soft tissue disorders (principal); M20.12 Hallux valgus (acquired), left foot
CPT/HCPCS: 73610; 73630

== ENCOUNTER → 2021-12-10 02:27 | Outpatient (CLI) | payer OTHER, SELFPAY ==
[2021-12-10 16:42] LABS: SARS-CoV-2 RNA PCR Positive
== END ==
PROVIDERS: PCP Internal Medicine; Visit Provider Nurse Practitioner
DX: U07.1 COVID-19 (principal)
CPT/HCPCS: C9803; U0003; U0005

== ENCOUNTER 2021-12-24 17:35 | Outpatient (CLI) | payer OTHER, SELFPAY ==
--- NOTE | ~2021-12-24 | XR_ITS ---
EXAMINATION: XR chest 2V EXAM DATE: 12/24/2021 17:49 INDICATION: R07.89 - SOB, COVID ON 12/08/21 TECHNIQUE: Frontal and lateral projections of the chest obtained and reviewed. Comparison is made to prior examination from 06/02/2020. FINDINGS: The lungs are clear. There are no pleural effusions. The cardiomediastinal silhouette is within normal limits. There is no pneumothorax suspected. The bones and soft tissues are unremarkab le. There is no significant interval change. IMPRESSION: Unremarkable chest x-ray exam. Reviewed, dictated and finalized at location G. EDUCATOR
== END 2021-12-24 17:36 | disposition home or self-care (01) ==
LOC: ANHIMG 17:39
PROVIDERS: PCP Internal Medicine; Visit Provider Nurse Practitioner
DX: R07.89 Other chest pain (principal)
CPT/HCPCS: 71046

== ENCOUNTER 2022-02-25 11:21 | Outpatient (CLI) | payer OTHER, SELFPAY ==
--- NOTE | ~2022-02-25 | XR_ITS ---
EXAMINATION: SCOLIOSIS DATE: 02/25/2022 11:58 INDICATION: Scoliosis, unspecified TECHNIQUE: Standing AP and lateral views of the thoracolumbar spine COMPARISON: Chest radiograph, 12/24/2021 FINDINGS: There are 12 rib bearing thoracic vertebral bodies and 4 non-rib bearing lumbar type verteb ral bodies. L5 is a transitional lumbosacral vertebra with pseudoarthrosis on the right. There is no listhesis, compression deformity or vertebral body anomaly. There is mild dextrocurvature of the mid thoracic spine. The apparent levocurvature of the lower thoracic spine results from an image fusion e rror rather than true scoliosis based on the recent comparison chest radiograph. IMPRESSION: 1. Mild dextrocurvature of the thoracic spine. 2. No vertebral body anomalies. Reviewed, dictated and finalized at location F.
== END 2022-02-25 11:22 | disposition home or self-care (01) ==
PROVIDERS: PCP Internal Medicine; Visit Provider Clinical Nurse Specialist
DX: M41.9 Scoliosis, unspecified (principal)
CPT/HCPCS: 72082

== ENCOUNTER 2022-07-09 10:13 | Emergency (ER) | payer OTHER, SELFPAY ==
--- NOTE | ~2022-07-09 | XR_ITS ---
EXAMINATION: XR chest 2V DATE: 07/09/2022 10:40 INDICATION: Congestion TECHNIQUE: PA and lateral views of the chest are obtained. COMPARISON: 12/24/2021 FINDINGS: The lungs are free of acute opacities. No pleural effusion or pneumothorax. The cardiomedia stinal silhouette is normal. The visualized bones and soft tissues are unremarkable. IMPRESSION: 1. No acute cardiopulmonary abnormality. Reviewed, dictated and finalized at location B.
--- NOTE | 2022-07-09 10:19 | ED.GENADULT ---
HPI - General Adult General Chief complaint: Upper Respiratory Infection Stated complaint: fever, lose of voice, cough, congestion History of Present Illness HPI narrative: 32 y/o AA female. PMHx Seasonal allergies, Migraine Dx, Asthma, IBS. Presents to the [facility] today with acute complaints of subjective fever, fatigue, nasal congestion, cough, sore throat, and 'hoarse' voice. Manifestations ongoing for the past 4 days. Client reports to have taken a home Covid test 1 day ago, however this was negative. She is a non-smoker. Denies LOPEZ, focal weakness. No dysphagia, involuntary drooling. No chest pain, palpitations, dyspnea, edema. No wheezing or hemoptysis. She notes to have contacted her PCP, and was told that an Xray and additional Covid swab would be of benefit. She is without other acute c/o upon PE. Related Data Home Medications Medication Instructions Recorded Confirmed calcium carbonate 600 mg-vitamin 1 tablet PO DAILY 03/28/20 07/09/22 D3 20 mcg (800 unit) chewable tablet (Caltrate 600 plus D) Allergies Allergy/AdvReac Type Severity Reaction Status Date / Time metoclopramide Allergy Unknown HIVES Verified 07/09/22 10:19 Review of Systems Review of Systems: CONSTITUTIONAL: Positive fever, chills, malaise/fatigue. EYES: Denies visual changes, redness, discharge. ENT: Positive rhinorrhea, congestion, sore throat. No otalgia. CARDIOVASCULAR: Denies chest pain, palpitations, edema. RESPIRATORY: Positive dyspnea, cough. No wheezing. GASTROINTESTINAL: Denies abdominal pain, nausea, vomiting, diarrhea. GENITOURINARY: Denies dysuria, hematuria, abnormal discharge SKIN: Denies rash or itching. MUSCULOSKELETAL: Denies acute back pain, joint pain, or myalgia. NEUROLOGIC: Denies numbness, or focal weakness. PSYCHIATRIC: Denies anxiety or depression. [facility] Past Medical History Medical History Allergies Anemia Anxiety Arthritis Asthma Chronic headaches Clubfoot, congenital Degenerative arthritis of right ankle History of IBS HLD (hyperlipidemia) Hoarseness IBS (irritable bowel syndrome) Migraines Posterior tibial tendon dysfunction (PTTD) of left lower extremity Supervision of other high risk pregnancies, second trimester Supervision of other high risk pregnancies, third trimester Weight gain Surgical History Surgical History H/O arthrodesis Triple 2015 History of ankle surgery History of repair of ACL Total knee replacement status 2018 Family History Family History Father Diabetes mellitus Cerebrovascular accident Acute myocardial infarction Mother Family history of multiple sclerosis Crohn's disease Grandparent Hypertension Colitis Dementia Kidney disease Social History Social History Smoking status: Never smoker Smoking end date: 11/01/03 Alcohol intake: never Substance use: never Gender identity (if verbalized by the patient): Female Spiritual care concerns: No Exam Narrative: GENERAL: This is a well-nourished, well-developed adult, in no apparent distress. HEAD: normocephalic, atraumatic. EYES: PERRL. Sclera clear/white. EARS: External ears normal, auditory canals clear and without drainage, TMs normal. NOSE: External nose normal. Positive Rhinorrhea, +PND, no obstruction, nares patent. THROAT: Mucous membranes moist, posterior pharynx is erythematous. No exudates. Voice is hoarse, no stridor. NECK: Neck supple, non-tender without lymphadenopathy, masses or thyromegaly. CARDIOVASCULAR: Regular rate and rhythm without murmurs, gallops, or rubs. RESPIRATORY: Clear to auscultation. Breath sounds equal bilaterally. No wheezes, rales, or rhonchi. GASTROINTESTINAL: Abdomen soft, non-tender, nondistended. Bowel
[2022-07-09 10:20] VITALS: BP 123/76; PULSE 64; RESP 12; TEMP 36.7; O2SAT 100
--- NOTE | 2022-07-09 10:39 | PC.NURSE ---
1035 Specimens for rapid covid and strep screen obtained then to xray.
== END 2022-07-09 10:55 | disposition home or self-care (01) ==
PROVIDERS: Emergency Provider Nurse Practitioner Adult Health; PCP Internal Medicine
DX: B34.9 Viral infection, unspecified (principal); J02.9 Acute pharyngitis, unspecified; Z20.822 Contact with and (suspected) exposure to COVID-19; E78.5 Hyperlipidemia, unspecified; M19.071 Primary osteoarthritis, right ankle and foot
CPT/HCPCS: 71046; 87081; 87426; 87880; 99213; C9803; G0463

== ENCOUNTER 2022-08-05 10:35 | Outpatient (CLI) | payer OTHER, SELFPAY | END 2022-08-05 10:36 | disposition home or self-care (01) | LOC: ANHGOSHLAB 10:38 | PROVIDERS: PCP Internal Medicine; Visit Provider Clinical Nurse Specialist | DX: R73.9 Hyperglycemia, unspecified (principal); R42 Dizziness and giddiness; E55.9 Vitamin D deficiency, unspecified; D64.9 Anemia, unspecified; Z13.228 Encounter for screening for other metabolic disorders | CPT/HCPCS: 99199; 36415 ==

== ENCOUNTER 2022-08-13 10:38 | Emergency (ER) | payer OTHER, SELFPAY ==
--- NOTE | ~2022-08-13 | CT_ITS ---
EXAMINATION: CT abdomen pelvis w con DATE: 08/13/2022 12:27 INDICATION: Left upper quadrant abdominal pain, nausea and fevers TECHNIQUE: Computed tomography (CT) of the abdomen and pelvis was performed with 100 mL Omnipaque-350 intravenous contrast. Automated exposure control and iterative reconstruction technique were employe d. The dose-length product was 1011.38 mGy-cm. COMPARISON: None FINDINGS: Lung bases are clear. No pleural effusion. Heart size is normal. Small pericardial effusion. Focal he patic steatosis at the ligamentum teres. Gallbladder, spleen, pancreas, bilateral adrenal glands and kidneys are normal. There is some fluid in the proximal colon which could be seen with diarrhea. Smal l bowel and appendix are normal. No abnormal bowel wall thickening or obstruction. Likely complex 4.5 cm left ovarian lesion with low but greater than simple fluid attenuation. Retroverted uterus, bladd er and right adnexa are unremarkable. No free intraperitoneal gas or fluid. No pathologically enlarge d abdominal or pelvic lymphadenopathy. Transitional sacralized on L5 segment. IMPRESSION: 1. 4.5 cm likely complex left adnexal cyst with greater than simple fluid attenuation statistically m ost likely to represent a hemorrhagic cyst. Consider further evaluation with pelvic ultrasound. 2. Fluid in the proximal colon which could be seen with gastroenteritis and diarrhea. No acute intra- abdominal/pelvic process. 3. Small pericardial effusion. Reviewed, dictated and finalized at location B. IMPRESSION: 1. 4.5 cm likely complex left adnexal cyst with greater than simple fluid atten uation statistically most likely to represent a hemorrhagic cyst. Consider furt her evaluation with pelvic ultrasound. 2. Fluid in the proximal colon which could be seen with gastroenteritis and bc rrhea. No acute intra-abdominal/pelvic process. 3. Small pericardial effusion.
--- NOTE | ~2022-08-13 | US_ITS ---
EXAMINATION: US pelvic complete w TV DATE: 08/13/2022 13:36 INDICATION: Pelvic pain. TECHNIQUE: Multiple transabdominal and transvaginal sonographic images of the pelvis were obtained. COMPARISON: CT abdomen and pelvis 08/13/2022 FINDINGS: TRANSABDOMINAL ULTRASOUND: The uterus measures 6.7 x 4.6 x 5.3 cm. There is no free fluid in the pelvis. TRANSVAGINAL ULTRASOUND: The endometrial complex measures 3 mm in thickness. The right ovary measures 3.2 x 1.2 x 1.9 cm. The left ovary measures 5.0 x 2.2 x 3.1 cm. There is a 4.5 cm cyst in left ovary with peripheral low live r echoes, consistent with a hemorrhagic cyst. There is normal vascular flow in the ovaries. IMPRESSION: 1. 4.5 cm hemorrhagic cyst in left ovary. Pelvis ultrasound is recommended in 6-12 weeks. Reviewed, dictated and finalized at location A. IMPRESSION: 1. 4.5 cm hemorrhagic cyst in left ovary. Pelvis ultrasound is recommended in 6 -12 weeks.
[2022-08-13 10:48] VITALS: BP 128/76; PULSE 79; RESP 16; TEMP 36.4; O2SAT 99
--- NOTE | 2022-08-13 10:59 | PC.NURSE ---
Patient complains of LUQ pain that began yesterday and state she initially state she thought she ate something bad , but she began having sharp pain and decided to get seen. Patient complains of nausea, but denies vomiting.
[2022-08-13 11:33] LABS: Basophils Percent Auto 0.2 % (0.2-1.2); Eosinophils Absolute Auto 0.1 K/mm3 (0-0.3); Eosinophils Percent Auto 1.1 % (0-4.4); Hematocrit 37.4 % (37.0-47.0); Hemoglobin 11.7 g/dL (12.0-15.0); Immature Granulocyte Absolute 0.02 K/mm3 (0.00-0.031); Immature Granulocyte Percent A 0.4 % (0-0.5); Lymphocytes Percent Auto 25.4 % (18.3-44.2); Mean Corpuscular HGB Conc 31.3 g/dl (32-36); Mean Corpuscular Hemoglobin 27.1 pg (26-34); Mean Corpuscular Volume 86.8 fl (80-100); Mean Platelet Volume 9.7 fl (7.4-10.4); Monocytes Absolute Auto 0.6 K/mm3 (0.1-0.6); Monocytes Percent Auto 10.9 % (2.6-8.5); Neutrophils Absolute Auto 3.4 K/mm3 (1.3-6.7); Platelet Count Result 384 k/mm3 (150-375); Red Blood Count 4.31 M/mm3 (4.2-5.4); Red Cell Distribution Width 13.6 % (11.5-14.5); White Blood Count 5.5 K/mm3 (4.5-10.0)
--- NOTE | 2022-08-13 11:33 | ED.GENADULT ---
HPI - General Adult General Chief complaint: Abdominal Pain Stated complaint: abdominal pain, fever Time Seen by Provider: 08/13/22 10:54 History of Present Illness HPI narrative: 32-year-old female presented to the emergency department for evaluation of 2 days of left upper quadrant abdominal pain that does radiate into her back. Patient does report associated nausea and vomiting. Patient has no prior history of abdominal surgeries. Patient denies any prior history of kidney stones. Patient denies any pain with urination. Patient does have history of obesity, depression Related Data Home Medications Medication Instructions Recorded Confirmed calcium carbonate 600 mg-vitamin 1 tablet PO DAILY 03/28/20 08/13/22 D3 20 mcg (800 unit) chewable tablet (Caltrate 600 plus D) Allergies Allergy/AdvReac Type Severity Reaction Status Date / Time metoclopramide Allergy Unknown HIVES Verified 08/05/22 09:42 Review of Systems Review of Systems: CONSTITUTIONAL: Denies fever, chills, or sweats. EYES: Denies visual changes, redness, or discharge. ENT: Denies rhinorrhea, congestion, sore throat, or otalgia. CARDIOVASCULAR: Denies chest pain, palpitations, or edema. RESPIRATORY: Denies cough or dyspnea. GASTROINTESTINAL: See HPI GENITOURINARY: Denies dysuria or hematuria. SKIN: Denies rash or itching. MUSCULOSKELETAL: Denies back pain, joint pain, or myalgia. NEUROLOGIC: Denies headache, numbness, or weakness. [facility] Past Medical History Medical History Allergies Anemia Anxiety Arthritis Asthma Chronic headaches Clubfoot, congenital Degenerative arthritis of right ankle History of IBS HLD (hyperlipidemia) Hoarseness IBS (irritable bowel syndrome) Migraines Posterior tibial tendon dysfunction (PTTD) of left lower extremity Supervision of other high risk pregnancies, second trimester Supervision of other high risk pregnancies, third trimester Weight gain Surgical History Surgical History H/O arthrodesis Triple 2014 History of ankle surgery History of repair of ACL Total knee replacement status 2018 Family History Family History Father Diabetes mellitus Cerebrovascular accident Acute myocardial infarction Mother Family history of multiple sclerosis Crohn's disease Grandparent Hypertension Colitis Dementia Kidney disease Social History Social History Smoking status: Never smoker Alcohol intake: never Substance use: never Gender identity (if verbalized by the patient): Female Spiritual care concerns: No Exam Narrative: APPEARANCE: Well appearing, no pain, no distress, well-nourished. HEAD: normocephalic, atraumatic. EYES: PERRLA/EOMI, conjunctivae clear. NOSE: Normal no drainage NECK: Supple. No adenopathy, no masses. RESPIRATORY: Airway patent, respirations nonlabored. Clear to auscultation bilaterally, no rales, rhonchi, wheezing. CARDIOVASCULAR: Regular rate and rhythm without murmurs rubs or gallops. ABDOMINAL: Soft, upper abdominal tenderness to palpation. No lower abdominal tenderness MUSCULOSKELETAL: Moves all extremities. Strength/ROM intact, No edema, No calf tenderness. NEURO: Alert. Cranial nerves II through XII intact. SKIN: Warm, dry. Normal Color Course Course Emergency Course: CT scan was concerned about hemorrhagic cyst. Ultrasound was ordered and did confirm hemorrhagic cyst. Patient was after the results of her imaging and encouraged of close follow-up with COMMUNICATIONS PROGRAMMER. All question concerns were addressed. Vital Signs Vital signs: Vital Signs Temperature 97.5 F L 08/13/22 10:48 Pulse Rate 79 08/13/22 10:48 Respiratory Rate 16 08/13/22 10:48 Blood Pressure 128/76 08/13/22 10:48 Pulse Oximetry 99 08/13/22 10:48 Oxygen De
[2022-08-13 11:40] LABS: Add Urine Microscopic? YES; Appearance Urine Cloudy (Clear); Bacteria Urine Trace /hpf; Bilirubin Urine Negative (Negative); Blood Urine 2+ (Negative); Color Urine Yellow (Yellow); Glucose Urine UA Negative (Negative); Ketones Urine Negative (Negative); Leukocyte Esterase Ur 3+ LEU/UL (Negative); Mucus Urine Rare /lpf; Nitrate Urine Negative (Negative); Protein Urine Negative (Negative); Specific Grav Ur 1.023 (1.001-1.035); Squamous Epithelial Cell Urine Many /hpf (Few); Urobilinogen Urine Negative mg/dL (<2.0); WBC Urine 51-75 /hpf
[2022-08-13] MEDS: ONDANSETRON INJ 4 MG/2 ML VIAL IV PUSH (11:48)
[2022-08-13] MEDS: HYDROmorphone HCL INJ (*CRX) 1 MG/ML SYR 0.5 MG IV PUSH (11:49)
[2022-08-13 11:54] LABS: Alanine Aminotransferase 12 U/L (6-35); Albumin Level 3.9 g/dL (3.5-5.1); Alkaline Phosphatase 94 U/L (38-126); Anion Gap 6 mmol/L (8-16); Aspartate Amino Transferase 18 U/L (14-36); Bilirubin,Total 0.2 mg/dL (0.2-1.3); Blood Urea Nitrogen 8 mg/dL (7-17); Calcium 8.5 mg/dL (8.4-10.2); Carbon Dioxide 25 mmol/L (22-30); Chloride 105 mmol/L (98-107); Estimated CRCL calculation 105 ml/min; Estimated Glomerular Filt Rate > 60; Glucose 86 mg/dL (65-110); Lipase 94 U/L (23-300); Sodium 136 mmol/L (137-145)
[2022-08-13 12:08] LABS: Pregnancy On Board Control Positive; Urine Pregnancy Test Negative
[2022-08-13 12:24] LABS: Lactic Acid Reflex < 0.5 mmol/L (0.7-2.0)
[2022-08-13 12:29] LABS: Potassium 3.8 mmol/L (3.4-5.0)
[2022-08-13 13:31] VITALS: BP 104/61; PULSE 72; RESP 18; TEMP 36.8; O2SAT 100
[2022-08-13] MEDS: CEPHALEXIN 250 MG CAPSULE PO (14:02)
== END 2022-08-13 14:06 | disposition home or self-care (01) ==
PROVIDERS: Emergency Provider Emergency Medicine; PCP Internal Medicine
DX: N39.0 Urinary tract infection, site not specified (principal); N83.202 Unspecified ovarian cyst, left side; J45.909 Unspecified asthma, uncomplicated; E78.5 Hyperlipidemia, unspecified; Q66.89 Other specified congenital deformities of feet; M19.071 Primary osteoarthritis, right ankle and foot
CPT/HCPCS: 36415; 74177; 76830; 76856; 80053; 81001; 81025; 83605; 83690; 85025; 87086; 87088; 96374; 96375; 99284; A9270; J1170; J2405; Q9967

== ENCOUNTER 2022-08-20 09:19 | Outpatient (CLI) | payer OTHER, SELFPAY ==
--- NOTE | 2022-08-20 09:44 | ECHO_ITS ---
Patient Info Name: Anai Tony Age: 32 years : 1990 Gender: Female Ht: 65 in Wt: 235 lbs BSA: 2.26 m2 HR: 64 bpm BP: 107 / 79 mmHg Technical Quality: Good Exam Date: 08/20/2022 10:17 AM Exam Location: [facility] Patient Status: Outpatient Admit Date: 08/20/2022 Staff Ordering Physician: Malini Jack Powerhouse Operator: Maria Reynoso RDCS Attending Provider: Malini Jack Referring Physician: Guero ZARCO; Exam Type: CA echo doppler color flow Study Info Indications R42 - Dizziness and giddiness Complete two-dimensional, color flow and Doppler transthoracic echocardiogram is performed. Summary 1. Complete two-dimensional, color flow and Doppler transthoracic echocardiogram is performed. 2. Left ventricular chamber dimension is normal. 3. Left ventricular systolic function is normal, estimated at 60-65%. 4. The left ventricular diastolic function is normal. 5. E/e' 5 is not elevated. 6. Global longitudinal strain is normal at -20.4%. 7. There is mild to moderate tricuspid valve regurgitation. 8. No pulmonary hypertension, estimated pulmonary arterial systolic pressure is 24 mmHg. 9. There is trace pulmonic regurgitation. 10. There is trivial pericardial effusion. Left Ventricle E/e' 5 is not elevated. Global longitudinal strain is normal at -20.4%. Left ventricular chamber dimension is normal. Left ventricular systolic function is normal, estimated at 60-65%. The left ventricular diastolic function is normal. Right Ventricle Right ventricular chamber dimension is normal. Right ventricular systolic function is normal. Left Atria Left atrial chamber dimension is normal. Right Atria Right atrial chamber dimension is normal. Aortic Valve The aortic valve is trileaflet. There is no aortic valve stenosis. There is no aortic valve regurgitation. Pulmonic Valve There is trace pulmonic regurgitation. Mitral Valve There is no mitral valve stenosis. There is no mitral valve regurgitation. Tricuspid Valve There is mild to moderate tricuspid valve regurgitation. No pulmonary hypertension, estimated pulmonary arterial systolic pressure is 24 mmHg. Pericardium/Pleural There is trivial pericardial effusion. Inferior Vena Cava Normal inferior vena cava with >50% collapse upon inspiration consistent with normal right atrial pressure, 5 mmHg. Aorta The aortic root size at the sinus of Valsalva is normal. Left Ventricular Outflow Tract Name Value Normal LVOT 2D LVOT Diameter 2.0 cm LVOT Doppler LVOT Peak Gradient 3 mmHg LVOT Mean Gradient 2 mmHg LVOT VTI 20 cm LVOT VTI/AV VTI Ratio 0.8 LVOT Stroke Volume 64 ml LVOT CO 3.9 l/min LVOT CI 1.7 l/min/m2 Pulmonic Valve Name Value Normal
--- NOTE | 2022-08-25 15:11 | WPDHOLTEREM ---
Holter/Event Monitor Holter/Event Monitor Date of procedure: 08/20/22 Holter/Event Procedure: 48 Hr Holter Monitor Indications: Dizziness Conclusion: 1. 48 hour holter monitor on 08/20/22. 2. Underlying rhythm is sinus rhythm. HR range 53-158 bpm; average HR 76 bpm. 3. There are 4 premature supraventricular complexes and 3 supraventricular couplets. No supraventricular tachycardia. 4. No premature ventricular complex. No ventricular tachycardia. 5. No sinoatrial or atrioventricular blocks. No significant pauses greater than 2 seconds. 6. Patient reports symptoms of chest pain, chest tightness, shortness of breath which demonstrate sinus rhythm, HR range 65-102 bpm.
== END 2022-08-20 09:20 | disposition home or self-care (01) ==
PROVIDERS: PCP Internal Medicine; Visit Provider Clinical Nurse Specialist
DX: R42 Dizziness and giddiness (principal); R55 Syncope and collapse; I36.1 Nonrheumatic tricuspid (valve) insufficiency
CPT/HCPCS: 93225; 93226; 93306

== ENCOUNTER 2022-10-05 15:49 | Outpatient (CLI) | payer OTHER, SELFPAY ==
[2022-10-05 17:02] LABS: SARS-CoV-2 RNA PCR Positive
== END 2022-10-05 15:50 | disposition home or self-care (01) ==
LOC: ANHLAB 15:51
PROVIDERS: PCP Internal Medicine; Visit Provider Nurse Practitioner
DX: U07.1 COVID-19 (principal)
CPT/HCPCS: U0003; U0005

== ENCOUNTER 2023-02-11 09:50 | Outpatient (CLI) | payer OTHER, SELFPAY ==
--- NOTE | ~2023-02-11 | XR_ITS ---
EXAMINATION: XR chest 2V 02/11/2023 10:19 INDICATION: Cough with fever PROCEDURE: 2 view chest COMPARISON: 07/09/2022 FINDINGS: The lungs are clear. The cardiomediastinal silhouette is within normal limits. There are no pleural effusions. There is no pneumothorax suspected. IMPRESSION: 1: NO ACUTE CARDIOPULMONARY DISEASE. Reviewed, dictated and finalized at location L.
[2023-02-11 10:54] LABS: Basophils Percent Auto 0.3 % (0.2-1.2); Eosinophils Absolute Auto 0.1 K/mm3 (0-0.3); Eosinophils Percent Auto 1.8 % (0-4.4); Hematocrit 39.8 % (37.0-47.0); Hemoglobin 12.3 g/dL (12.0-15.0); Immature Granulocyte Absolute 0.01 K/mm3 (0.00-0.031); Immature Granulocyte Percent A 0.1 % (0-0.5); Lymphocytes Absolute Auto 2.16 K/mm3 (0.9-3.2); Lymphocytes Percent Auto 30.3 % (18.3-44.2); Mean Corpuscular HGB Conc 30.9 g/dl (32-36); Mean Corpuscular Hemoglobin 27.2 pg (26-34); Mean Corpuscular Volume 88.1 fl (80-100); Mean Platelet Volume 9.9 fl (7.4-10.4); Monocytes Absolute Auto 0.5 K/mm3 (0.1-0.6); Monocytes Percent Auto 7.4 % (2.6-8.5); Neutrophils Absolute Auto 4.3 K/mm3 (1.3-6.7); Neutrophils Percent Auto 60.1 % (45.5-73.1); Platelet Count Result 359 k/mm3 (150-375); Red Blood Count 4.52 M/mm3 (4.2-5.4); Red Cell Distribution Width 13.5 % (11.5-14.5); White Blood Count 7.1 K/mm3 (4.5-10.0)
[2023-02-11 11:15] LABS: Alanine Aminotransferase 16 U/L (6-35); Albumin Level 4.2 g/dL (3.5-5.1); Alkaline Phosphatase 87 U/L (38-126); Anion Gap 9 mmol/L (8-16); Aspartate Amino Transferase 19 U/L (14-36); Bilirubin,Total 0.3 mg/dL (0.2-1.3); Blood Urea Nitrogen 8 mg/dL (7-17); Calcium 8.8 mg/dL (8.4-10.2); Carbon Dioxide 27 mmol/L (22-30); Chloride 105 mmol/L (98-107); Estimated Glomerular Filt Rate > 60; Glucose 75 mg/dL (65-110); Potassium 3.8 mmol/L (3.4-5.0); Sodium 141 mmol/L (137-145)
[2023-02-11 11:36] LABS: Platelet Estimate Adequate (Adequate); Schistocytes None Seen (NORMAL)
[2023-02-11 11:37] LABS: Atypical Lymphocytes Present
[2023-02-11 12:23] LABS: Folic Acid > 20.0 ng/mL (2.76->20)
[2023-02-11 14:24] LABS: Iron 69 ug/dL (37-170)
[2023-02-11 14:33] LABS: Percent Iron Saturation 20 % (20-50)
== END 2023-02-11 09:51 | disposition home or self-care (01) ==
LOC: ANHIMG 09:53
PROVIDERS: PCP Internal Medicine; Visit Provider Clinical Nurse Specialist
DX: R05.9 Cough, unspecified (principal); D64.9 Anemia, unspecified; J45.909 Unspecified asthma, uncomplicated
CPT/HCPCS: 36415; 71046; 80053; 82607; 82728; 82746; 83540; 83550; 85025

== ENCOUNTER 2023-03-16 15:12 | Outpatient (CLI) | payer OTHER, SELFPAY ==
--- NOTE | ~2023-03-16 | US_ITS ---
Pelvic ultrasound. Clinical History: First trimester , amenorrhea Technique: Realtime transabdominal and transvaginal scanning of the pelvis was performed. Color flow Doppler and Doppler spectral analysis were performed. Findings: The uterus is retroverted, and contains an intrauterine gestation. [employer]-rump length of 1.8 cm corresponds to an estimated gestational age of 8 weeks 2 days. heart rate is 178 bpm. Yolk sac also present. Small subchorionic hematoma is present near the fundus measuring 9 x 8 x 6 mm. The right ovary measures 3.9 x 1.7 x 2.2 cm. No significant right ovarian or adnexal mass is seen. The left ovary measures 1.4 x 4.1 x 1.4 cm. No significant left ovarian or adnexal mass is seen. There is no evidence of free fluid in the cul de sac. Impression: Live intrauterine gestation with estimated gestational age of 8 weeks 2 days. heart rate is 178 bpm. Small subchorionic hematoma, as detailed above. Reviewed, dictated and finalized at location . Impression: Live intrauterine gestation with estimated gestational age of 8 weeks 2 days. F etal heart rate is 178 bpm. Small subchorionic hematoma, as detailed above.
== END 2023-03-16 15:13 | disposition home or self-care (01) ==
LOC: ANHIMG 15:14
PROVIDERS: PCP Internal Medicine; Visit Provider Registered Nurse
DX: Z34.91 Encounter for supervision of normal pregnancy, unspecified, first trimester (principal); Z3A.08 8 weeks gestation of pregnancy
CPT/HCPCS: 76801; 76817

== ENCOUNTER 2023-04-08 16:02 | Outpatient (CLI) | payer OTHER, SELFPAY ==
[2023-04-08 16:52] LABS: Basophils Percent Auto 0.4 % (0.2-1.2); Eosinophils Absolute Auto 0.1 K/mm3 (0-0.3); Eosinophils Percent Auto 1.3 % (0-4.4); Hematocrit 34.6 % (37.0-47.0); Hemoglobin 10.9 g/dL (12.0-15.0); Immature Granulocyte Absolute 0.04 K/mm3 (0.00-0.031); Immature Granulocyte Percent A 0.5 % (0-0.5); Lymphocytes Absolute Auto 1.58 K/mm3 (0.9-3.2); Lymphocytes Percent Auto 18.9 % (18.3-44.2); Mean Corpuscular HGB Conc 31.5 g/dl (32-36); Mean Corpuscular Hemoglobin 26.5 pg (26-34); Mean Corpuscular Volume 84.2 fl (80-100); Mean Platelet Volume 9.9 fl (7.4-10.4); Monocytes Absolute Auto 0.5 K/mm3 (0.1-0.6); Monocytes Percent Auto 6.1 % (2.6-8.5); Neutrophils Absolute Auto 6.1 K/mm3 (1.3-6.7); Neutrophils Percent Auto 72.8 % (45.5-73.1); Platelet Count Result 335 k/mm3 (150-375); Red Blood Count 4.11 M/mm3 (4.2-5.4); White Blood Count 8.4 K/mm3 (4.5-10.0)
[2023-04-08 16:58] LABS: Appearance Urine Clear (Clear); Bacteria Urine 1+ /hpf; Bilirubin Urine Negative (Negative); Blood Urine Negative (Negative); Color Urine Yellow (Yellow); Glucose Urine UA Negative (Negative); Ketones Urine Trace mg/dL (Negative); Leukocyte Esterase Ur Negative LEU/UL (NEGATIVE); Nitrate Urine Negative (Negative); Non Pathogenic Casts 0-2; Protein Urine Trace mg/dL (Negative); RBC Urine 0-2 /hpf (0-2); Squamous Epithelial Cell Urine Few /hpf (Few); pH Urine 5.5 (5.0-9.0)
[2023-04-08 17:07] LABS: Alanine Aminotransferase 15 U/L (6-35); Albumin Level 3.8 g/dL (3.5-5.1); Alkaline Phosphatase 62 U/L (38-126); Anion Gap 6 mmol/L (8-16); Aspartate Amino Transferase 17 U/L (14-36); Bilirubin,Total 0.1 mg/dL (0.2-1.3); Blood Urea Nitrogen 9 mg/dL (7-17); Calcium 8.9 mg/dL (8.4-10.2); Carbon Dioxide 27 mmol/L (22-30); Chloride 102 mmol/L (98-107); Estimated Glomerular Filt Rate > 60; Glucose 128 mg/dL (65-110); Potassium 3.7 mmol/L (3.4-5.0); Sodium 135 mmol/L (137-145)
[2023-04-08 17:09] LABS: Add Urine Microscopic? YES; Specific Grav Ur 1.037 (1.001-1.035)
[2023-04-08 17:38] LABS: Thyroid Stimulating Hormone 0.733 uIU/mL (0.465-4.680)
[2023-04-08 17:51] LABS: Vitamin D 25 Hydroxy 39.6 ng/mL
[2023-04-08 17:59] LABS: Hepatitis B Surface Antigen Negative (Negative); Rubella IgG Antibody 39.2 IU/ML
[2023-04-08 18:12] LABS: Hepatitis C Virus Antibody Negative (Negative)
[2023-04-08 19:26] LABS: HIV 1/2 Ab P24 Ag Result Negative (Negative)
[2023-04-09 13:19] LABS: Rapid Plasma Reagin Non-Reactive (NonReactive)
[2023-04-18 09:58] LABS: CF Result NEGATIVE (NEGATIVE); Ethnicity NG
== END 2023-04-08 16:03 | disposition home or self-care (01) ==
LOC: ANHLAB 16:03
PROVIDERS: PCP Internal Medicine; Visit Provider Obstetrics & Gynecology
DX: Z34.90 Encounter for supervision of normal pregnancy, unspecified, unspecified trimester (principal); Z3A.00 Weeks of gestation of pregnancy not specified
CPT/HCPCS: 36415; 80053; 81001; 81220; 81243; 82306; 83021; 84443; 85025; 86592; 86703; 86762; 86787; 86803; 86850; 86900; 86901; 87086; 87340; G0432

== ENCOUNTER 2023-04-10 13:17 | Outpatient (CLI) | payer OTHER, SELFPAY ==
[2023-04-10 13:40] LABS: Total Volume 24 Hour Urine 1100 ml
[2023-04-10 13:51] LABS: Creatinine 24 Hour Urine 1.4 gm/24 (0.8-1.8); Creatinine Urine 136.3 mg/dL
== END 2023-04-10 13:18 | disposition home or self-care (01) ==
LOC: ANHLAB 13:19
PROVIDERS: PCP Internal Medicine; Visit Provider Obstetrics & Gynecology
DX: Z34.90 Encounter for supervision of normal pregnancy, unspecified, unspecified trimester (principal)
CPT/HCPCS: 81050; 82570

== ENCOUNTER 2023-07-30 08:44 | Outpatient (CLI) | payer OTHER, SELFPAY ==
[2023-07-30 10:28] LABS: Basophils Percent Auto 0.3 % (0.2-1.2); Eosinophils Absolute Auto 0.1 K/mm3 (0-0.3); Eosinophils Percent Auto 0.8 % (0-4.4); Hematocrit 32.2 % (37.0-47.0); Immature Granulocyte Absolute 0.07 K/mm3 (0.00-0.031); Immature Granulocyte Percent A 0.7 % (0-0.5); Lymphocytes Percent Auto 16.4 % (18.3-44.2); Mean Corpuscular HGB Conc 31.1 g/dl (32-36); Mean Corpuscular Hemoglobin 26.7 pg (26-34); Mean Corpuscular Volume 85.9 fl (80-100); Mean Platelet Volume 9.7 fl (7.4-10.4); Monocytes Absolute Auto 0.5 K/mm3 (0.1-0.6); Monocytes Percent Auto 4.8 % (2.6-8.5); Neutrophils Absolute Auto 7.5 K/mm3 (1.3-6.7); Platelet Count Result 311 k/mm3 (150-375); Red Blood Count 3.75 M/mm3 (4.2-5.4); Red Cell Distribution Width 13.5 % (11.5-14.5); White Blood Count 9.7 K/mm3 (4.5-10.0)
[2023-07-30 10:43] LABS: Glucose 1 Hour PP 50gm Dose 122 mg/dL
== END 2023-07-30 08:45 | disposition home or self-care (01) ==
LOC: ANHLAB 08:45
PROVIDERS: PCP Internal Medicine; Visit Provider Obstetrics & Gynecology
DX: Z34.93 Encounter for supervision of normal pregnancy, unspecified, third trimester (principal); Z3A.00 Weeks of gestation of pregnancy not specified
CPT/HCPCS: 36415; 82947; 85025

== ENCOUNTER 2023-09-03 12:45 | Outpatient (CLI) | payer OTHER, SELFPAY ==
[2023-09-03 14:37] LABS: Hematocrit 31.9 % (37.0-47.0); Hemoglobin 9.9 g/dL (12.0-15.0); Mean Corpuscular Hemoglobin 26.5 pg (26-34); Mean Corpuscular Volume 85.3 fl (80-100); Mean Platelet Volume 10.1 fl (7.4-10.4); Platelet Count Result 346 k/mm3 (150-375); Red Blood Count 3.74 M/mm3 (4.2-5.4); Red Cell Distribution Width 13.8 % (11.5-14.5); White Blood Count 10.7 K/mm3 (4.5-10.0)
[2023-09-03 15:15] LABS: HIV 1/2 Ab P24 Ag Result Negative (Negative)
[2023-09-06 08:14] LABS: Rapid Plasma Reagin Non-Reactive (NonReactive)
== END 2023-09-03 12:46 | disposition home or self-care (01) ==
LOC: ANHLAB 12:46
PROVIDERS: PCP Internal Medicine; Visit Provider Obstetrics & Gynecology
DX: O09.92 Supervision of high risk pregnancy, unspecified, second trimester (principal); Z3A.00 Weeks of gestation of pregnancy not specified
CPT/HCPCS: 36415; 85027; 86592; 86703; G0432

== ENCOUNTER 2024-05-05 10:38 | Outpatient (CLI) | payer OTHER, SELFPAY ==
[2024-05-05 18:24] LABS: Basophils Percent Auto 0.7 % (0.2-1.2); Eosinophils Absolute Auto 0.1 K/mm3 (0-0.3); Eosinophils Percent Auto 1.8 % (0-4.4); Hematocrit 38.6 % (37.0-47.0); Hemoglobin 11.8 g/dL (12.0-15.0); Immature Granulocyte Absolute 0.01 K/mm3 (0.00-0.031); Immature Granulocyte Percent A 0.2 % (0-0.5); Lymphocytes Percent Auto 33.5 % (18.3-44.2); Mean Corpuscular HGB Conc 30.6 g/dl (32-36); Mean Corpuscular Hemoglobin 26.9 pg (26-34); Mean Corpuscular Volume 88.1 fl (80-100); Mean Platelet Volume 10.4 fl (7.4-10.4); Monocytes Absolute Auto 0.4 K/mm3 (0.1-0.6); Monocytes Percent Auto 7.7 % (2.6-8.5); Neutrophils Absolute Auto 3.2 K/mm3 (1.3-6.7); Neutrophils Percent Auto 56.1 % (45.5-73.1); Platelet Count Result 386 k/mm3 (150-375); Red Blood Count 4.38 M/mm3 (4.2-5.4); Red Cell Distribution Width 13.2 % (11.5-14.5); White Blood Count 5.7 K/mm3 (4.5-10.0)
[2024-05-05 18:48] LABS: Anion Gap 5 mmol/L (4-12); Blood Urea Nitrogen 7 mg/dL (7-17); Calcium 9.1 mg/dL (8.4-10.2); Carbon Dioxide 28 mmol/L (22-30); Chloride 105 mmol/L (98-107); Estimated Glomerular Filt Rate > 60; Glucose 85 mg/dL (65-110); Iron 134 ug/dL (37-170); Sodium 138 mmol/L (137-145)
[2024-05-05 19:02] LABS: Percent Iron Saturation 45 % (20-50)
[2024-05-05 19:46] LABS: Folic Acid 6.4 ng/mL (2.76->20)
== END 2024-05-05 10:39 | disposition home or self-care (01) ==
LOC: ANHGOSHLAB 10:40
PROVIDERS: PCP Clinical Nurse Specialist; Visit Provider Clinical Nurse Specialist
DX: D64.9 Anemia, unspecified (principal); F41.9 Anxiety disorder, unspecified; R74.8 Abnormal levels of other serum enzymes
CPT/HCPCS: 36415; 80048; 82607; 82728; 82746; 83540; 83550; 84443; 85025

== ENCOUNTER 2024-05-10 15:29 | Outpatient (CLI) | payer OTHER, SELFPAY ==
--- NOTE | ~2024-05-10 | XR_ITS ---
EXAMINATION: XR lumbar spine 2-3V DATE: 05/10/2024 16:13 INDICATION: Lumbar radiculopathy. Low back pain. TECHNIQUE: 3 views of lumbar spine were obtained. COMPARISON: CT abdomen and pelvis 08/13/2022 FINDINGS: There is 3 degrees levocurvature of thoracolumbar spine. Vertebral body heights and interve rtebral disc heights are normal. There is multilevel moderate to severe facet joint osteoarthritis. IMPRESSION: 1. Lumbar facet joint osteoarthritis. Reviewed, dictated and finalized at location E.
--- NOTE | ~2024-05-10 | XR_ITS ---
EXAMINATION: XR hip BI wo pelvis DATE: 05/10/2024 16:13 INDICATION: Bilateral hip pain. TECHNIQUE: 2 views of right hip and 2 views of left hip were obtained. COMPARISON: None. FINDINGS: Bone alignment is normal. No fracture. There is mild osteoarthritis of the hips. IMPRESSION: 1. Mild osteoarthritis of the hips. Reviewed, dictated and finalized at location E.
== END 2024-05-10 15:30 ==
PROVIDERS: PCP Clinical Nurse Specialist; Visit Provider Clinical Nurse Specialist
DX: M16.0 Bilateral primary osteoarthritis of hip (principal); M51.36 Other intervertebral disc degeneration, lumbar region
CPT/HCPCS: 72100; 73521